=== PATIENT | female | born 1930 | race Caucasian/White ===

== ENCOUNTER → 2016-12-14 | Outpatient (CLI) | payer MEDICARE, OTHER ==
[2016-12-14 14:11] LABS: ALANINE AMINOTRANSFERASE 22 U/L (9-52); ALBUMIN 4.1 g/dL (3.5-5.0); ALKALINE PHOSPHATASE 111 U/L (38-126); ANION GAP 8 (5-19); ASPARTATE AMINO TRANSFERASE 29 U/L (14-36); BILIRUBIN,TOTAL 0.7 mg/dL (0.2-1.3); BLOOD UREA NITROGEN 21 mg/dL (7-20); CALCIUM 9.5 mg/dL (8.4-10.2); CARBON DIOXIDE 27 mmol/L (22-30); CHLORIDE 98 mmol/L (98-107); CREATININE RESULT 0.95 mg/dL (0.52-1.25); GLUCOSE 85 mg/dL (75-110); POTASSIUM 5.4 mmol/L (3.6-5.0); SODIUM 133.4 mmol/L (137-145); TOTAL PROTEIN 6.8 g/dL (6.3-8.2)
== END ==
LOC: OD 12:50
PROVIDERS: ATTEND Internal Medicine
DX: Z79.899 Other long term (current) drug therapy (principal); E03.9 Hypothyroidism, unspecified
CPT/HCPCS: 36415; 80053; 84436; 84443

== ENCOUNTER → 2017-12-04 | Outpatient (CLI) | payer MEDICARE, OTHER ==
[2017-12-04 17:28] LABS: FREE T4 (FREE THYROXINE) 1.63 ng/dL (0.78-2.19)
[2017-12-04 17:42] LABS: THYROID STIMULATING HORMONE 0.91 uIU/mL (0.47-4.68)
== END ==
LOC: OD 15:52
PROVIDERS: ATTEND Internal Medicine
DX: E03.9 Hypothyroidism, unspecified (principal)
CPT/HCPCS: 36415; 84439; 84443

== ENCOUNTER 2018-01-05 16:53 | Emergency (ER) | payer MEDICARE, OTHER ==
[2018-01-05] MEDS ORDERED: LIDOCAINE 2% VISCOUS SOLN 20 ML UDCUP PO ONE (17:52)
[2018-01-05] MEDS ORDERED: MAG HYDROX/AL HYDROX/SIMETH SUSP 30 ML UDCUP PO ONE (17:52)
--- NOTE | 2018-01-05 17:53 | ER Document Report ---
ED Medical Screen (RME) - General Chief Complaint: Chest Pain > 30 Stated Complaint: CHEST PAIN Time Seen by Provider: 01/05/18 17:46 Notes: RME DISCLOSURE I have seen this patient as part of a Rapid Medical Evaluation and, if applicable, placed any initially appropriate orders. The patient will be seen and fully evaluated, including a full history and physical exam, by a provider ( in Main ED or Fast Track) when a room becomes available. 87-year-old female here with complaints of midsternal chest pain that feels like her acid reflux. It started this morning around 10 AM, 7 hours ago, after she ate a brownie and has been going all day long. She used to be on Nexium but her help desk coordinator took her off this medication. Symptoms not worse with exertion or breathing. TRAVEL OUTSIDE OF THE [place] IN LAST 30 DAYS: No - Related Data Allergies/Adverse Reactions: codeine [Codeine] Allergy (Intermediate, Verified 01/05/18 16:56) severe nausea Past Medical History - Social History Chew tobacco use (# tins/day): No Frequency of alcohol use: None Drug Abuse: None - Past Medical History Cardiac Medical History: Reports: Hx Congestive Heart Failure, Hx Coronary Artery Disease, Hx Heart Attack - 06/2000 , Hx Hypercholesterolemia, Hx Hypertension - meds since 1999 Denies: Hx Atrial Fibrillation, Hx Peripheral Vascular Disease, Hx Pulmonary Embolism, Hx Heart Murmur Pulmonary Medical History: Reports: Hx Bronchitis, Hx Pneumonia - viral 12 yrs ago Denies: Hx Asthma, Hx COPD, Hx Respiratory Failure, Hx Sleep Apnea, Hx Tuberculosis Neurological Medical History: Denies: Hx Cerebrovascular Accident, Hx Seizures Endocrine Medical History: Reports: Hx Hypothyroidism. Denies: Hx Graves' Disease, Hx Hyperthyroidism Renal/ Medical History: Denies: Hx End Stage Renal Disease, Hx Kidney Stones, Hx Ovarian Cysts, Hx Peritoneal Dialysis, Hx Pelvic Inflammatory Disease Malignancy Medical History: Denies: Hx Breast Cancer, Hx Cervical Cancer, Hx Leukemia, Hx Lung Cancer, Hx Ovarian Cancer GI Medical History: Reports: Hx Gastroesophageal Reflux Disease, Hx Irritable Bowel, Hx Ulcer - stomach. Denies: Hx Crohn's Disease, Hx Hiatal Hernia, Hx Liver Failure, Hx Pancreatitis Musculoskeltal Medical History: Reports Hx Arthritis - all over, Denies Hx Fibromyalgia, Denies Hx Multiple Sclerosis, Denies Hx Muscular Dystrophy Psychiatric Medical History: Denies: Hx Bipolar Disorder, Hx Dementia, Hx Depression, Hx Post Traumatic Stress Disorder, Hx Schizophrenia Traumatic Medical History: Reports: Hx Fractures - broken rt arm when a child Infectious Medical History: Denies: Hx HIV Past Surgical History: Reports: Hx Coronary Artery Bypass Graft, Hx Hysterectomy. Denies: Hx Colostomy, Hx Pacemaker - Immunizations Hx Diphtheria, Pertussis, Tetanus Vaccination: Yes Physical Exam - Vital signs Vitals: Temp Pulse Resp BP Pulse Ox 98.0 F 80 18 151/65 H 95 01/05/18 17:10 01/05/18 17:10 01/05/18 17:10 01/05/18 17:10 01/05/18 17:10 Course - Vital Signs Vital signs: Temp Pulse Resp BP Pulse Ox 98.0 F 80 18 151/65 H 95 01/05/18 17:10 01/05/18 17:10 01/05/18 17:10 01/05/18 17:10 01/05/18 17:10 Doctor's Discharge - Discharge Referrals: CHEVY RASHID MD [Primary Care Provider] - Follow up as needed
[2018-01-05 18:15] LABS: ABSOLUTE EOSINOPHILS # (AUTO) 0.1 10^3/uL (0.0-0.6); ABSOLUTE LYMPHOCYTES (AUTO) 1.2 10^3/uL (0.5-4.7); ABSOLUTE MONOCYTES (AUTO) 0.4 10^3/uL (0.1-1.4); ABSOLUTE NEUT (AUTO) 2.5 10^3/uL (1.7-8.2); EOSINOPHILS % (AUTO) 1.5 % (0-6); HEMATOCRIT 40.2 % (36.0-47.0); HEMOGLOBIN 13.4 g/dL (12.0-15.5); MEAN CORPUSCULAR HEMOGLOBIN 29.9 pg (27.0-33.4); MEAN CORPUSCULAR HGB CONC 33.2 g/dL (32.0-36.0); MEAN CORPUSCULAR VOLUME 90 fl (80-97); MONOCYTES % (AUTO) 10.1 % (3-13); PLATELET COUNT 188 10^3/uL (150-450); RED BLOOD COUNT 4.47 10^6/uL (3.72-5.28); RED CELL DISTRIBUTION WIDTH 13.1 % (11.5-14.0); SEGMENTED NEUTROPHILS % (AUTO) 59.4 % (42-78); TOTAL CELLS COUNTED % (AUTO) 100 %; WHITE BLOOD COUNT 4.3 10^3/uL (4.0-10.5)
--- NOTE | 2018-01-05 18:23 | RADIOLOGY REPORT (SQ) ---
EXAM DESCRIPTION: CHEST PA/LAT COMPLETED DATE/TIME: 01/05/2018 6:12 pm REASON FOR STUDY: CP SOB COMPARISON: 08/11/2015 EXAM PARAMETERS: NUMBER OF VIEWS: two views TECHNIQUE: Digital Frontal and Lateral radiographic views of the chest acquired. RADIATION DOSE: NA LIMITATIONS: none FINDINGS: LUNGS AND PLEURA: The lungs are hyperexpanded. There are no infiltrates or effusions. Th ere is no mass. MEDIASTINUM AND HILAR STRUCTURES: No masses or contour abnormalities. HEART AND VASCULAR STRUCTURES: Heart normal size. No evidence for failure. BONES: No acute findings. HARDWARE: Sternotomy wires, graft markers. OTHER: No other significant finding. IMPRESSION: Chronic lung changes with no acute cardiopulmonary disease. TECHNICAL DOCUMENTATION: JOB ID: [id number] [employer]- All Rights Reserved Reading location - IP/workstation name: [email or web address]
[2018-01-05 18:36] LABS: ALANINE AMINOTRANSFERASE 61 U/L (9-52); ALBUMIN 4.2 g/dL (3.5-5.0); ALKALINE PHOSPHATASE 158 U/L (38-126); ANION GAP 12 (5-19); ASPARTATE AMINO TRANSFERASE 50 U/L (14-36); BILIRUBIN,DIRECT 0.3 mg/dL (0.0-0.4); BILIRUBIN,TOTAL 0.6 mg/dL (0.2-1.3); BLOOD UREA NITROGEN 18 mg/dL (7-20); CALCIUM 9.8 mg/dL (8.4-10.2); CARBON DIOXIDE 30 mmol/L (22-30); CHLORIDE 92 mmol/L (98-107); GLUCOSE 119 mg/dL (75-110); POTASSIUM 4.3 mmol/L (3.6-5.0); SODIUM 134.2 mmol/L (137-145); TOTAL PROTEIN 6.7 g/dL (6.3-8.2)
--- NOTE | 2018-01-05 21:12 | ER Document Report ---
ED General - General Chief Complaint: Chest Pain > 30 Stated Complaint: CHEST PAIN Time Seen by Provider: 01/05/18 17:46 Information source: Patient TRAVEL OUTSIDE OF THE [place] IN LAST 30 DAYS: No - HPI Patient complains to provider of: acid reflux disease Onset: This morning Onset/Duration: Gradual Notes: Patient is an 87-year-old female that lives at home with her son. She moved here from [place] approximately 30 years ago. She states that she has a history of acid reflux and was on Nexium for years. She has had GERD for at least 13 years she had 3 upper GIs and has a history of esophageal dilatation with esophageal ulcers in the past. She sees Dr. Barahona. Patient states proximally 5 years ago she was taken off Nexium by her test analyst. Patient has a history of CABG in 1999 and states she has not had chest pain since that time. This morning patient had her usual coffee oatmeal with blueberries around 8 AM. Around 10:00 she did have brownies with walnuts. She states that she cut the [employer] some very small as she usually does due to her history of esophageal dilation. Patient states shortly after eating brownies that she had severe acid reflux where she could not eat or drink anything. She presents here for evaluation. - Related Data Allergies/Adverse Reactions: codeine [Codeine] Allergy (Intermediate, Verified 01/05/18 16:56) severe nausea Past Medical History - General Information source: Patient - Social History Smoking Status: Former Smoker Chew tobacco use (# tins/day): No Frequency of alcohol use: None Drug Abuse: None Lives with: Family Family History: CAD Patient has suicidal ideation: No Patient has homicidal ideation: No - Past Medical History Cardiac Medical History: Reports: Hx Congestive Heart Failure, Hx Coronary Artery Disease, Hx Heart Attack - 06/2000 , Hx Hypercholesterolemia, Hx Hypertension - meds since 1999 Denies: Hx Atrial Fibrillation, Hx Peripheral Vascular Disease, Hx Pulmonary Embolism, Hx Heart Murmur Pulmonary Medical History: Reports: Hx Bronchitis, Hx Pneumonia - viral 12 yrs ago Denies: Hx Asthma, Hx COPD, Hx Respiratory Failure, Hx Sleep Apnea, Hx Tuberculosis Neurological Medical History: Denies: Hx Cerebrovascular Accident, Hx Seizures Endocrine Medical History: Reports: Hx Hypothyroidism. Denies: Hx Graves' Disease, Hx Hyperthyroidism Renal/ Medical History: Denies: Hx End Stage Renal Disease, Hx Kidney Stones, Hx Ovarian Cysts, Hx Peritoneal Dialysis, Hx Pelvic Inflammatory Disease Malignancy Medical History: Denies: Hx Breast Cancer, Hx Cervical Cancer, Hx Leukemia, Hx Lung Cancer, Hx Ovarian Cancer GI Medical History: Reports: Hx Gastroesophageal Reflux Disease, Hx Irritable Bowel, Hx Ulcer - stomach. Denies: Hx Crohn's Disease, Hx Hiatal Hernia, Hx Liver Failure, Hx Pancreatitis Musculoskeltal Medical History: Reports Hx Arthritis - all over, Denies Hx Fibromyalgia, Denies Hx Multiple Sclerosis, Denies Hx Muscular Dystrophy Psychiatric Medical History: Denies: Hx Bipolar Disorder, Hx Dementia, Hx Depression, Hx Post Traumatic Stress Disorder, Hx Schizophrenia Traumatic Medical History: Reports: Hx Fractures - broken rt arm when a child Infectious Medical History: Denies: Hx HIV Past Surgical History: Reports: Hx Coronary Artery Bypass Graft, Hx Hysterectomy. Denies: Hx Colostomy, Hx Pacemaker - Immunizations Hx Diphtheria, Pertussis, Tetanus Vaccination: Yes Hx Pneumococcal Vaccination: 10/30/09 Review of Systems - Review of Systems Constitutional: No symptoms reported EENT: No symptoms reported Cardiovascular: No symptoms reported Respiratory: No symptoms reported Gastrointestinal: See HPI Genitourinary: No symptoms reported Skin: No symptoms reported Hematologic/Lymphatic: No symptoms reported Neurological/Psychological: No symptoms reported Physical Exam - Vital signs Vitals: Temp Pulse Resp BP Pulse Ox 98.0 F 80 18 151/65 H 95 01/05/18 17:10 01/05/18 17:10 01/05/18 17:10 01/05/18 17:10 01/05/18 17:10 - Notes Notes: PHYSICAL EXAMINATION: GENERAL: Well-appearing, well-nourished and in no acute distress. She appears younger than her stated age. HEAD: Atraumatic, normocephalic. EYES: Pupils equal round and reactive to light, extraocular movements intact, conjunctiva are normal. ENT: Nares patent, oropharynx clear without exudates. Moist mucous membranes. NECK: Normal range of motion, supple without lymphadenopathy LUNGS: Breath sounds clear to auscultation bilaterally and equal. No wheezes rales or rhonchi. HEART: Regular rate and rhythm with murmur ABDOMEN: Soft, nontender, nondistended abdomen. No guarding, no rebound. No masses appreciated. Female : deferred Musculoskeletal: Normal range of motion, no pitting or edema. No cyanosis. NEUROLOGICAL: Cranial nerves grossly intact. Normal speech, normal gait. Normal sensory, motor exams PSYCH: Normal mood, normal affect. SKIN: Warm, Dry, normal turgor, no rashes or lesions noted. Course - Re-evaluation Re-evalutation: 01/05/18 21:10 Labs- All tests 24 hr 01/05/18 01/05/18 01/05/18 18:00 18:00 18:00 WBC 4.3 RBC 4.47 Hgb 13.4 Hct 40.2 MCV 90 MCH 29.9 MCHC 33.2 RDW 13.1 Plt Count 188 Seg Neutrophils % 59.4 Lymphocytes % 28.0 Monocytes % 10.1 Eosinophils % 1.5 Basophils % 1.0 Absolute Neutrophils 2.5 Absolute Lymphocytes 1.2 Absolute Monocytes 0.4 Absolute Eosinophils 0.1 Absolute Basophils 0.0 Sodium 134.2 L Potassium 4.3 Chloride 92 L Carbon Dioxide 30 Anion Gap 12 BUN 18 Creatinine 1.02 Est GFR ( Amer) > 60 Est GFR (Non-Af Amer) 51 L Glucose 119 H Calcium 9.8 Total Bilirubin 0.6 Direct Bilirubin 0.3 Neonat Total Bilirubin Not Reportable Neonat Direct Bilirubin Not Reportable Neonat Indirect Bili Not Reportable AST 50 H ALT 61 H Alkaline Phosphatase 158 H Troponin I < 0.012 Total Protein 6.7 Albumin 4.2 Chest X-Ray 01/05/18 17:52 IMPRESSION: Chronic lung changes with no acute cardiopulmonary disease. - Vital Signs Vital signs: Temp Pulse Resp BP Pulse Ox 98.0 F 80 18 151/65 H 95 01/05/18 17:10 01/05/18 17:10 01/05/18 17:10 01/05/18 17:10 01/05/18 17:10 - Laboratory Result Diagrams: 01/05/18 18:00 01/05/18 18:00 Laboratory results interpreted by me: 01/05/18 18:00 Sodium 134.2 L Chloride 92 L Est GFR (Non-Af Amer) 51 L Glucose 119 H AST 50 H ALT 61 H Alkaline Phosphatase 158 H - Diagnostic Test Radiology reviewed: Image reviewed, Reports reviewed - EKG Interpretation by Me EKG shows normal: Sinus rhythm - 79 Rhythm: APC's When compared to previous EKG there are: No significant change Discharge - Discharge Clinical Impression: Reflux esophagitis Condition: Stable Disposition: HOME, SELF-CARE Instructions: Antacid Therapy ([facility]), Esophagitis ([facility]) Additional Instructions: Follow up with your physician tomorrow for further care or return to the ED IMMEDIATELY if symptoms worsen or new concerns occur. If you cannot afford to follow up with your primary care physician a list of low cost clinics have been provided at the end of your discharge papers as well. Follow-up with your test analyst Dr. Pal as scheduled next . His try and eat a bland diet for the next week. If you have continued episodes of reflux you need to talk to Dr. Wright your carpet cleaner. Return to the emergency department if you have chest pain, high fevers, intractable vomiting or any other concerns. Referrals: CHEVY RASHID MD [Primary Care Provider] - Follow up as needed
--- NOTE | 2018-01-05 21:13 | EKG REPORT ---
SEVERITY:- ABNORMAL ECG - SINUS RHYTHM MULTIPLE ATRIAL PREMATURE COMPLEXES BORDERLINE RIGHT AXIS DEVIATION NONSPECIFIC REPOL ABNORMALITY, DIFFUSE LEADS BORDERLINE PROLONGED QT INTERVAL : Confirmed by: Bjorn Pal 05-Jan-2018 21:11:55
[2018-01-05 21:17] VITALS: BP 140/63
== END 2018-01-05 21:40 | disposition home or self-care (01) ==
LOC: ER 16:53
DX: K21.0 Gastro-esophageal reflux disease with esophagitis (principal); R07.9 Chest pain, unspecified; Z87.891 Personal history of nicotine dependence; I50.9 Heart failure, unspecified; I25.10 Atherosclerotic heart disease of native coronary artery without angina pectoris; I25.2 Old myocardial infarction; E78.00 Pure hypercholesterolemia, unspecified; I10 Essential (primary) hypertension
CPT/HCPCS: 93005; 99285; 36415; 85025; 80053; 84484; 71046; 93010; J3490

== ENCOUNTER → 2018-11-29 | Outpatient (CLI) | payer MEDICARE, OTHER ==
[2018-11-29 11:16] LABS: ABSOLUTE EOSINOPHILS # (AUTO) 0.1 10^3/uL (0.0-0.6); ABSOLUTE LYMPHOCYTES (AUTO) 1.2 10^3/uL (0.5-4.7); ABSOLUTE MONOCYTES (AUTO) 0.3 10^3/uL (0.1-1.4); ABSOLUTE NEUT (AUTO) 1.7 10^3/uL (1.7-8.2); BASOPHILS % (AUTO) 0.9 % (0-2); EOSINOPHILS % (AUTO) 2.6 % (0-6); HEMATOCRIT 38.1 % (36.0-47.0); HEMOGLOBIN 12.8 g/dL (12.0-15.5); LYMPHOCYTES % (AUTO) 35.5 % (13-45); MEAN CORPUSCULAR HEMOGLOBIN 30.2 pg (27.0-33.4); MEAN CORPUSCULAR HGB CONC 33.7 g/dL (32.0-36.0); MEAN CORPUSCULAR VOLUME 90 fl (80-97); MONOCYTES % (AUTO) 9.9 % (3-13); PLATELET COUNT 178 10^3/uL (150-450); RED BLOOD COUNT 4.25 10^6/uL (3.72-5.28); RED CELL DISTRIBUTION WIDTH 13.9 % (11.5-14.0); SEGMENTED NEUTROPHILS % (AUTO) 51.1 % (42-78); TOTAL CELLS COUNTED % (AUTO) 100 %; WHITE BLOOD COUNT 3.4 10^3/uL (4.0-10.5)
[2018-11-29 11:26] LABS: ALANINE AMINOTRANSFERASE 31 U/L (9-52); ALKALINE PHOSPHATASE 109 U/L (38-126); ANION GAP 6 (5-19); ASPARTATE AMINO TRANSFERASE 37 U/L (14-36); BILIRUBIN,DIRECT 0.3 mg/dL (0.0-0.4); BILIRUBIN,TOTAL 0.8 mg/dL (0.2-1.3); BLOOD UREA NITROGEN 17 mg/dL (7-20); CALCIUM 9.1 mg/dL (8.4-10.2); CARBON DIOXIDE 30 mmol/L (22-30); CHLORIDE 103 mmol/L (98-107); GLUCOSE 98 mg/dL (75-110); POTASSIUM 5.1 mmol/L (3.6-5.0); TOTAL PROTEIN 6.4 g/dL (6.3-8.2); TRIGLYCERIDES 63 mg/dL (<150)
[2018-11-29 11:36] LABS: DIRECT LDL 56 mg/dL (<100)
[2018-11-29 11:42] LABS: FREE T4 (FREE THYROXINE) 1.96 ng/dL (0.78-2.19)
[2018-11-29 12:00] LABS: THYROID STIMULATING HORMONE < 0.01 uIU/mL (0.47-4.68)
== END ==
LOC: OD 09:39
PROVIDERS: ATTEND Internal Medicine
DX: J44.9 Chronic obstructive pulmonary disease, unspecified (principal); I10 Essential (primary) hypertension; I25.10 Atherosclerotic heart disease of native coronary artery without angina pectoris; E03.9 Hypothyroidism, unspecified; E78.5 Hyperlipidemia, unspecified; Z79.899 Other long term (current) drug therapy
CPT/HCPCS: 36415; 80053; 80061; 84439; 84443; 85025

== ENCOUNTER 2019-07-26 07:17 | Emergency (ER) | payer MEDICARE, OTHER ==
[2019-07-26] MEDS ORDERED: ACETAMINOPHEN 325 MG TABLET PO ONE (07:27)
[2019-07-26] MEDS ORDERED: CYCLOBENZAPRINE HCL 10 MG TABLET PO ONE (07:27)
--- NOTE | 2019-07-26 07:27 | ER Document Report ---
ED General - General Stated Complaint: TROUBLE BREATHING Time Seen by Provider: 07/26/19 07:22 Primary Care Provider: CHEVY GONSALVES MD [Primary Care Provider] - Follow up as needed TRAVEL OUTSIDE OF THE [place] IN LAST 30 DAYS: No - HPI Patient complains to provider of: neck pain Notes: 89 y/o presenting to ED for evaluation of left sided neck pain ongoing for 2-3 days w/o known trauma no weakness or numbness in arms or legs no headache no injury she reports significant pain w/ attempted movement of neck and minimal pain if she stays still no fever no skin change she has tried no medication for this pain incidentally, she also notes chronic SOB x2-3 years that is at baseline - Related Data Allergies/Adverse Reactions: codeine [Codeine] Allergy (Intermediate, Verified 01/05/18 16:56) severe nausea Past Medical History - Social History Smoking Status: Unknown if Ever Smoked Family History: CAD - Past Medical History Cardiac Medical History: Reports: Hx Congestive Heart Failure, Hx Coronary Artery Disease, Hx Heart Attack - 06/2000 , Hx Hypercholesterolemia, Hx Hypertension - meds since 1999 Denies: Hx Atrial Fibrillation, Hx Peripheral Vascular Disease, Hx Pulmonary Embolism, Hx Heart Murmur Pulmonary Medical History: Reports: Hx Bronchitis, Hx Pneumonia - viral 12 yrs ago Denies: Hx Asthma, Hx COPD, Hx Respiratory Failure, Hx Sleep Apnea, Hx Tuberculosis Neurological Medical History: Denies: Hx Cerebrovascular Accident, Hx Seizures, Hx Parkinson's Disease Endocrine Medical History: Reports: Hx Hypothyroidism. Denies: Hx Graves' Disease, Hx Hyperthyroidism Renal/ Medical History: Denies: Hx End Stage Renal Disease, Hx Kidney Stones, Hx Ovarian Cysts, Hx Peritoneal Dialysis, Hx Pelvic Inflammatory Disease Malignancy Medical History: Denies: Hx Breast Cancer, Hx Cervical Cancer, Hx Leukemia, Hx Lung Cancer, Hx Ovarian Cancer GI Medical History: Reports: Hx Gastroesophageal Reflux Disease, Hx Irritable Bowel, Hx Ulcer - stomach. Denies: Hx Crohn's Disease, Hx Hiatal Hernia, Hx Liver Failure, Hx Pancreatitis Musculoskeletal Medical History: Reports Hx Arthritis - all over, Denies Hx Fibromyalgia, Denies Hx Multiple Sclerosis, Denies Hx Muscular Dystrophy, Denies Hx Systemic Lupus Erythematosus Psychiatric Medical History: Denies: Hx Bipolar Disorder, Hx Dementia, Hx Depression, Hx Post Traumatic Stress Disorder, Hx Schizophrenia Traumatic Medical History: Reports: Hx Fractures - broken rt arm when a child Infectious Medical History: Denies: Hx HIV Past Surgical History: Reports: Hx Coronary Artery Bypass Graft, Hx Hysterectomy. Denies: Hx Colostomy, Hx Pacemaker - Immunizations Hx Diphtheria, Pertussis, Tetanus Vaccination: Yes Hx Pneumococcal Vaccination: 10/30/09 Review of Systems - Review of Systems Constitutional: No symptoms reported EENT: No symptoms reported Cardiovascular: No symptoms reported Respiratory: Short of breath Gastrointestinal: No symptoms reported Genitourinary: No symptoms reported Female Genitourinary: No symptoms reported Musculoskeletal: Neck pain Skin: No symptoms reported Hematologic/Lymphatic: No symptoms reported Neurological/Psychological: No symptoms reported. denies: Weakness, Gait changes, Headaches, Speech impairment, Numbness Physical Exam - Vital signs Vitals: Pulse Ox 97 07/26/19 07:20 Interpretation: Normal - General General appearance: Appears well, Alert - HEENT Head: Normocephalic, Atraumatic Eyes: Normal Pupils: PERRL Neck: Other - she has limited rom of neck when turning to left but can turn to right ok. does not flex neck significantly because she states it increases her pain. she has focal left sided paraspinal c spine tenderness over trapezius distribution. no rashes Notes: normal and symmetric pupillary response - Respiratory Respiratory status: No respiratory distress Chest status: Nontender Breath sounds: Normal Chest palpation: Normal - Cardiovascular Rhythm: Regular Heart sounds: Normal auscultation Murmur: No - Abdominal Inspection: Normal Distension: No distension Bowel sounds: Normal Tenderness: Nontender Organomegaly: No organomegaly - Back Back: Normal, Nontender - Extremities General upper extremity: Normal inspection, Nontender, Normal color, Normal ROM, Normal temperature General lower extremity: Normal inspection, Nontender, Normal color, Normal ROM, Normal temperature, Normal weight bearing. No: Janneth's sign - Neurological Neuro grossly intact: Yes Cognition: Normal Orientation: AAOx4 [place] Coma Scale Eye Opening: Spontaneous Nam Coma Scale Verbal: Oriented [place] Coma Scale Motor: Obeys Commands [place] Coma Scale Total: 15 Speech: Normal Motor strength normal: LUE, RUE, LLE, RLE Sensory: Normal Notes: no weakness or numbness in extremities w/ symmetric reflexes. - Psychological Associated symptoms: Normal affect, Normal mood - Skin Skin Temperature: Warm Skin Moisture: Dry Skin Color: Normal Course - Re-evaluation Re-evalutation: 07/26/19 07:39 patient presenting for left sided neck pain seems msk in nature on exam will check labs, ekg, cxr, and c spine xr given advanced age and potential for atypical cardiac presentation ekg nonischemic acutely 07/26/19 09:12 patient's c spine xr shows significant arthropathy CXR has mild edema and trace effusion no oxygen requirement or increased work of breathing ekg nonischemic trop neg doubt atypical acs given duration of symptoms and neg trop has had some improvement w/ tylenol and flexeril will rx flexeril and steroid course recommend pcp follow up for ongoing care encouraged ongoing cardiology follow up for cardiac issues - Vital Signs Vital signs: Temp Pulse Resp BP Pulse Ox 98.9 F 71 20 146/77 H 98 07/26/19 07:47 07/26/19 07:47 07/26/19 08:11 07/26/19 08:11 07/26/19 08:11 - Laboratory Result Diagrams: 07/26/19 08:05 07/26/19 08:05 Laboratory results interpreted by me: 07/26/19 07/26/19 08:05 08:05 Hct 35.9 L Lymph % (Auto) 12.5 L Seg Neutrophils % 79.2 H Sodium 132.5 L Total Bilirubin 1.7 H Direct Bilirubin 0.5 H AST 55 H Alkaline Phosphatase 166 H Total Protein 6.1 L Albumin 3.4 L - Diagnostic Test Radiology reviewed: Image reviewed, Reports reviewed - EKG Interpretation by Me Additional EKG results interpreted by me: 07/26/19 07:39 EKG - 0732, rate of 76. NSR. no ST changes. poor R wave progression. similar to previous study with actually more normal appearance of ST segments Discharge - Discharge Clinical Impression: Cervical spine arthritis, Neck pain, Elevated blood pressure reading CHF (congestive heart failure) Qualifiers: Heart failure type: unspecified Heart failure chronicity: unspecified Qualified Code(s): I50.9 - Heart failure, unspecified Condition: Stable Disposition: HOME, SELF-CARE Instructions: Arthritis ([facility]) Additional Instructions: follow up with primary care provider for ongoing symptoms return to the ED with worsening of condition take medicine as directed Prescriptions: Cefdinir 300 mg PO BID #14 capsule Cyclobenzaprine HCl [Flexeril 5 mg Tablet] 5 mg PO TID #15 tablet Methylprednisolone [Medrol Dosepack (4 mg/Tab) 21 Tab/Dosepak] 21 tab PO ASDIR PRN #1 [id number] PRN Reason: Referrals: CHEVY GONSALVES MD [Primary Care Provider] - Follow up as needed
[2019-07-26 08:19] LABS: ABSOLUTE LYMPHOCYTES (AUTO) 0.8 10^3/uL (0.5-4.7); ABSOLUTE MONOCYTES (AUTO) 0.4 10^3/uL (0.1-1.4); ABSOLUTE NEUT (AUTO) 4.8 10^3/uL (1.7-8.2); BASOPHILS % (AUTO) 0.6 % (0-2); EOSINOPHILS % (AUTO) 0.3 % (0-6); HEMATOCRIT 35.9 % (36.0-47.0); HEMOGLOBIN 12.1 g/dL (12.0-15.5); LYMPHOCYTES % (AUTO) 12.5 % (13-45); MEAN CORPUSCULAR HEMOGLOBIN 30.4 pg (27.0-33.4); MEAN CORPUSCULAR HGB CONC 33.6 g/dL (32.0-36.0); MEAN CORPUSCULAR VOLUME 91 fl (80-97); MONOCYTES % (AUTO) 7.4 % (3-13); PLATELET COUNT 184 10^3/uL (150-450); RED BLOOD COUNT 3.97 10^6/uL (3.72-5.28); RED CELL DISTRIBUTION WIDTH 13.7 % (11.5-14.0); SEGMENTED NEUTROPHILS % (AUTO) 79.2 % (42-78); TOTAL CELLS COUNTED % (AUTO) 100 %; WHITE BLOOD COUNT 6.1 10^3/uL (4.0-10.5)
--- NOTE | 2019-07-26 08:29 | RADIOLOGY REPORT (SQ) ---
EXAM DESCRIPTION: CHEST SINGLE VIEW COMPLETED DATE/TIME: 07/26/2019 7:54 am REASON FOR STUDY: SOB COMPARISON: 05/01/2015, 08/11/2015, 01/05/2018 EXAM PARAMETERS: NUMBER OF VIEWS: One view. TECHNIQUE: Single frontal radiographic view of the chest acquired. RADIATION DOSE: NA LIMITATIONS: None. FINDINGS: LUNGS AND PLEURA: Trace right pleural effusion. There is mild bibasilar airspace disease atelectasis versus pneumonia. Remainder of the lungs are grossly clear. No pneumothorax. MEDIASTINUM AND HILAR STRUCTURES: No masses. Contour normal. HEART AND VASCULAR STRUCTURES: Post sternotomy for CABG. BONES: No acute findings. HARDWARE: None in the chest. OTHER: No other significant finding. IMPRESSION: Trace right pleural effusion. Bibasilar airspace disease likely atelectasis TECHNICAL DOCUMENTATION: JOB ID: [id number] [employer]- All Rights Reserved Reading location - IP/workstation name: [email or web address]
--- NOTE | 2019-07-26 08:31 | RADIOLOGY REPORT (SQ) ---
EXAM DESCRIPTION: CERV SP 4 OR 5 VIEWS COMPLETED DATE/TIME: 07/26/2019 7:54 am REASON FOR STUDY: pain COMPARISON: 05/01/2015 NUMBER OF VIEWS: Five views. TECHNIQUE: AP, lateral, obliques and odontoid radiographic images acquired of the cervical spine. LIMITATIONS: None. FINDINGS: MINERALIZATION: Osteopenic ALIGNMENT: Anatomic. VERTEBRAE: Vertebral bodies of normal height. DISCS: High-grade disc space loss of height at C5-6 FORAMINA: Moderate left-sided C4-5 facet hypertrophy. No significant foraminal narrowing. LATERAL AND POSTERIOR ELEMENTS: Facets, lateral masses and spinous processes without significant find ings. HARDWARE: None in the spine. SOFT TISSUES: No masses or calcifications. Lung apices clear. OTHER: No other significant finding. IMPRESSION: Left facet arthropathy at C4-5. Disc space loss of height with vertebral body endplate sclerosis at C5-6. No high-grade bony foraminal or central stenosis TECHNICAL DOCUMENTATION: JOB ID: [id number] [employer] All Rights Reserved Reading location - IP/workstation name: [email or web address]
[2019-07-26 08:39] LABS: ALBUMIN 3.4 g/dL (3.5-5.0); ALKALINE PHOSPHATASE 166 U/L (38-126); ANION GAP 9 (5-19); ASPARTATE AMINO TRANSFERASE 55 U/L (14-36); BILIRUBIN,DIRECT 0.5 mg/dL (0.0-0.4); BILIRUBIN,TOTAL 1.7 mg/dL (0.2-1.3); BLOOD UREA NITROGEN 14 mg/dL (7-20); CALCIUM 8.4 mg/dL (8.4-10.2); CARBON DIOXIDE 26 mmol/L (22-30); CHLORIDE 98 mmol/L (98-107); GLUCOSE 109 mg/dL (75-110); POTASSIUM 4.4 mmol/L (3.6-5.0); TOTAL PROTEIN 6.1 g/dL (6.3-8.2)
[2019-07-26 09:51] VITALS: BP 142/60
--- NOTE | 2019-07-27 09:13 | EKG REPORT ---
SEVERITY:- OTHERWISE NORMAL ECG - SINUS RHYTHM LOW VOLTAGE IN FRONTAL LEADS MINIMAL ST DEPRESSION, ANTEROLATERAL LEADS : Confirmed by: Bjorn Pal 27-Jul-2019 09:12:46
== END 2019-07-26 09:59 | disposition home or self-care (01) ==
LOC: ER 07:17
DX: M46.92 Unspecified inflammatory spondylopathy, cervical region (principal); M54.2 Cervicalgia; R03.0 Elevated blood-pressure reading, without diagnosis of hypertension; I50.9 Heart failure, unspecified; Z88.6 Allergy status to analgesic agent
CPT/HCPCS: 93005; 99284; 36415; 85025; 80053; 84484; 72050; 71045; 93010; A9270 ×2

== ENCOUNTER 2019-08-15 06:48 | Inpatient (IN) | payer MEDICARE, OTHER ==
[2019-08-15 07:21] LABS: ABSOLUTE LYMPHOCYTES (AUTO) 0.8 10^3/uL (0.5-4.7); ABSOLUTE MONOCYTES (AUTO) 0.2 10^3/uL (0.1-1.4); ABSOLUTE NEUT (AUTO) 1.8 10^3/uL (1.7-8.2); BASOPHILS % (AUTO) 1.2 % (0-2); EOSINOPHILS % (AUTO) 1.3 % (0-6); HEMATOCRIT 34.8 % (36.0-47.0); HEMOGLOBIN 11.4 g/dL (12.0-15.5); LYMPHOCYTES % (AUTO) 28.5 % (13-45); MEAN CORPUSCULAR HEMOGLOBIN 29.8 pg (27.0-33.4); MEAN CORPUSCULAR HGB CONC 32.8 g/dL (32.0-36.0); MEAN CORPUSCULAR VOLUME 91 fl (80-97); MONOCYTES % (AUTO) 8.1 % (3-13); PLATELET COUNT 210 10^3/uL (150-450); RED BLOOD COUNT 3.83 10^6/uL (3.72-5.28); RED CELL DISTRIBUTION WIDTH 14.1 % (11.5-14.0); SEGMENTED NEUTROPHILS % (AUTO) 60.9 % (42-78); TOTAL CELLS COUNTED % (AUTO) 100 %; WHITE BLOOD COUNT 2.9 10^3/uL (4.0-10.5)
[2019-08-15 07:23] LABS: INTERNATIONAL RATION (INR) 1.16; PROTHROMBIN TIME 14.9 SEC (11.4-15.4)
[2019-08-15 07:37] LABS: ALKALINE PHOSPHATASE 163 U/L (38-126); ANION GAP 6 (5-19); ASPARTATE AMINO TRANSFERASE 52 U/L (14-36); BILIRUBIN,DIRECT 0.4 mg/dL (0.0-0.4); BLOOD UREA NITROGEN 15 mg/dL (7-20); CALCIUM 8.4 mg/dL (8.4-10.2); CARBON DIOXIDE 27 mmol/L (22-30); CHLORIDE 101 mmol/L (98-107); GLUCOSE 152 mg/dL (75-110); POTASSIUM 4.9 mmol/L (3.6-5.0); TOTAL PROTEIN 5.5 g/dL (6.3-8.2)
[2019-08-15 07:43] LABS: VENOUS BLOOD PCO2 48.2 mmHg (35-63); VENOUS BLOOD PH 7.35 (7.30-7.42)
[2019-08-15 07:46] LABS: NT PRO BNP 15800 pg/mL (<450)
[2019-08-15 07:51] LABS: TROPONIN I < 0.012 ng/mL
--- NOTE | 2019-08-15 08:15 | RADIOLOGY REPORT (SQ) ---
EXAM DESCRIPTION: CHEST SINGLE VIEW COMPLETED DATE/TIME: 08/15/2019 7:43 am REASON FOR STUDY: sob COMPARISON: 07/26/2019 EXAM PARAMETERS: NUMBER OF VIEWS: One view. TECHNIQUE: Single frontal radiographic view of the chest acquired. RADIATION DOSE: NA LIMITATIONS: None. FINDINGS: LUNGS AND PLEURA: Increased heterogeneous opacity of the right lung base. Small right ple ural effusion. Mild diffuse interstitial pulmonary opacity bilaterally. MEDIASTINUM AND HILAR STRUCTURES: No masses. Contour normal. HEART AND VASCULAR STRUCTURES: Cardiomegaly status post median sternotomy. BONES: No acute findings. HARDWARE: None in the chest. OTHER: No other significant finding. IMPRESSION: 1. Increased heterogeneous opacity of the right lung base with a small right pleural ef fusion, findings concerning for infection or aspiration. 2. Underlying mild diffuse interstitial pulmonary opacity, likely edema in the setting of cardiomega ly and similar to prior examination. TECHNICAL DOCUMENTATION: JOB ID: [id number] [employer]- All Rights Reserved Reading location - IP/workstation name: [email or web address]
--- NOTE | 2019-08-15 09:13 | EKG REPORT ---
SEVERITY:- OTHERWISE NORMAL ECG - SINUS RHYTHM LOW VOLTAGE IN FRONTAL LEADS MINIMAL ST DEPRESSION, LATERAL LEADS : Confirmed by: Bjorn Pal 15-Aug-2019 09:12:45
[2019-08-15] MEDS ORDERED: AZITHROMYCIN 250 MG TABLET PO ONE (10:15)
[2019-08-15] MEDS ORDERED: FUROSEMIDE INJ/PF 40 MG/4 ML SDV IV ONE (10:15)
--- NOTE | 2019-08-15 10:31 | ER Document Report ---
ED General - General Chief Complaint: Shortness Of Breath Stated Complaint: DIFFICULTY BREATHING Time Seen by Provider: 08/15/19 07:01 Primary Care Provider: CHEVY GONSALVES MD [Primary Care Provider] - Follow up as needed Mode of Arrival: Medic Information source: Patient TRAVEL OUTSIDE OF THE [place] IN LAST 30 DAYS: No - HPI Notes: Patient presents complaining of shortness of breath. She states it is been going on for 3 to 4 days. She has had a mild dry cough. She has felt that her legs have been swelling. She states she does have a history of congestive heart failure. No history of COPD. She states she has not smoked cigarettes in approximately 60 years. The shortness breath is worse with exertion and better with rest. There is no known radiation of the symptoms. It is been moderate to severe in intensity. It is been constant. No fever sweats or chills. No chest pain. - Related Data Allergies/Adverse Reactions: codeine [Codeine] Allergy (Intermediate, Verified 01/05/18 16:56) severe nausea Past Medical History - General Information source: Patient - Social History Smoking Status: Former Smoker Chew tobacco use (# tins/day): No Frequency of alcohol use: None Drug Abuse: None Family History: CAD Patient has suicidal ideation: No Patient has homicidal ideation: No - Past Medical History Cardiac Medical History: Reports: Hx Congestive Heart Failure, Hx Coronary Artery Disease, Hx Heart Attack - 06/2000 , Hx Hypercholesterolemia, Hx Hypertension - meds since 1999 Denies: Hx Atrial Fibrillation, Hx Peripheral Vascular Disease, Hx Pulmonary Embolism, Hx Heart Murmur Pulmonary Medical History: Reports: Hx Bronchitis, Hx Pneumonia - viral 12 yrs ago Denies: Hx Asthma, Hx COPD, Hx Respiratory Failure, Hx Sleep Apnea, Hx Tuberculosis Neurological Medical History: Denies: Hx Cerebrovascular Accident, Hx Seizures, Hx Parkinson's Disease Endocrine Medical History: Reports: Hx Hypothyroidism. Denies: Hx Graves' Disease, Hx Hyperthyroidism Renal/ Medical History: Denies: Hx End Stage Renal Disease, Hx Kidney Stones, Hx Ovarian Cysts, Hx Peritoneal Dialysis, Hx Pelvic Inflammatory Disease Malignancy Medical History: Denies: Hx Breast Cancer, Hx Cervical Cancer, Hx Leukemia, Hx Lung Cancer, Hx Ovarian Cancer GI Medical History: Reports: Hx Gastroesophageal Reflux Disease, Hx Irritable Bowel, Hx Ulcer - stomach. Denies: Hx Crohn's Disease, Hx Hiatal Hernia, Hx Liver Failure, Hx Pancreatitis Musculoskeletal Medical History: Reports Hx Arthritis - all over, Denies Hx Fibr omyalgia, Denies Hx Multiple Sclerosis, Denies Hx Muscular Dystrophy, Denies Hx Systemic Lupus Erythematosus Psychiatric Medical History: Denies: Hx Bipolar Disorder, Hx Dementia, Hx Depression, Hx Post Traumatic Stress Disorder, Hx Schizophrenia Traumatic Medical History: Reports: Hx Fractures - broken rt arm when a child Infectious Medical History: Denies: Hx HIV Past Surgical History: Reports: Hx Coronary Artery Bypass Graft, Hx Hysterectomy. Denies: Hx Colostomy, Hx Pacemaker - Immunizations Hx Diphtheria, Pertussis, Tetanus Vaccination: Yes Hx Pneumococcal Vaccination: 10/30/09 Review of Systems - Review of Systems Constitutional: Malaise, Weakness. denies: Chills, Fever Cardiovascular: denies: Chest pain, Palpitations Respiratory: Cough, Short of breath Gastrointestinal: denies: Nausea, Vomiting -: Yes All other systems reviewed and negative Physical Exam - Vital signs Vitals: Temp Resp Pulse Ox 97.1 F 19 100 08/15/19 07:01 08/15/19 07:01 08/15/19 07:01 Interpretation: Tachypneic - General General appearance: Appears well, Alert In distress: Mild - HEENT Head: Normocephalic, Atraumatic Eyes: Normal Pupils: PERRL - Respiratory Respiratory status: Respiratory distress - mild Chest status: Nontender Breath sounds: Decreased air movement Chest palpation: Normal - Cardiovascular Rhythm: Regular Heart sounds: Normal auscultation Murmur: No - Abdominal Inspection: Normal Distension: No distension Bowel sounds: Normal Tenderness: Nontender Organomegaly: No organomegaly - Back Back: Normal, Nontender - Extremities General upper extremity: Normal inspection, Nontender, Normal color, Normal ROM, Normal temperature General lower extremity: Nontender, Edema - 1+ bilateral pitting, Normal color, Normal ROM, Normal temperature. No: Janneth's sign - Neurological Neuro grossly intact: Yes Cognition: Normal Orientation: AAOx4 Nam Coma Scale Eye Opening: Spontaneous [place] Coma Scale Verbal: Oriented Nam Coma Scale Motor: Obeys Commands [place] Coma Scale Total: 15 Speech: Normal Motor strength normal: LUE, RUE, LLE, RLE Sensory: Normal - Psychological Associated symptoms: Normal affect, Normal mood - Skin Skin Temperature: Warm Skin Moisture: Dry Skin Color: Normal Course - Re-evaluation Re-evalutation: 08/15/19 10:33 Patient presents with shortness of breath. Patient has a history of CHF and she does have an elevated BNP of 15,000. She also has changes on her x-ray consistent with pulmonary edema. In addition patient has questionable early consolidation in her lungs consistent with pneumonia. Therefore patient has been treated with Lasix as well as antibiotics. - Vital Signs Vital signs: Temp Pulse Resp BP Pulse Ox 97.1 F 21 H 113/71 99 08/15/19 07:01 08/15/19 09:26 08/15/19 09:26 08/15/19 09:26 - Laboratory Result Diagrams: 08/15/19 06:59 08/15/19 06:59 Laboratory results interpreted by me: 08/15/19 08/15/19 08/15/19 06:59 06:59 06:59 WBC 2.9 L Hgb 11.4 L Hct 34.8 L RDW 14.1 H Sodium 133.6 L Glucose 152 H AST 52 H Alkaline Phosphatase 163 H NT-Pro-B Natriuret Pep 55512 H Total Protein 5.5 L Albumin 3.0 L - Diagnostic Test Radiology reviewed: Image reviewed, Reports reviewed - EKG Interpretation by Me EKG shows normal: Sinus rhythm Rate: Normal - 79 Rhythm: NSR [place]/QRS: No: Right axis deviation, Left axis deviation Discharge - Discharge Clinical Impression: CHF (congestive heart failure) Qualifiers: Heart failure type: other Qualified Code(s): I50.9 - Heart failure, unspecified Pneumonia Qualifiers: Pneumonia type: due to unspecified organism Laterality: right Lung location: lower lobe of lung Qualified Code(s): J18.1 - Lobar pneumonia, unspecified organism Condition: Serious Disposition: ADMITTED INPATIENT Admitting Provider: Héctor (Hospitalist) - Day will do admit Unit Admitted: Medical Floor Referrals: CHEVY GONSALVES MD [Primary Care Provider] - Follow up as needed
[2019-08-15] MEDS: CEFTRIAXONE 2 GM/D5W RTU 2 GM/50 ML RTUPB IV SCH (10:40)
[2019-08-15] MEDS ORDERED: ONDANSETRON HCL INJ/PF 4 MG/2 ML SDV IV PRN (12:19)
[2019-08-15] MEDS ORDERED: MAGNESIUM HYDROXIDE SUSP 30 ML UDCUP PO PRN (12:19)
[2019-08-15] MEDS ORDERED: ACETAMINOPHEN 325 MG TABLET PO PRN (12:19)
[2019-08-15] MEDS ORDERED: ONDANSETRON 4 MG TAB.RAPDIS PO PRN (12:19)
[2019-08-15 13:17] LABS: APPEARANCE,URINE CLEAR; BILIRUBIN,URINE NEGATIVE (NEGATIVE); COLOR,URINE YELLOW; GLUCOSE, URINE NEGATIVE (NEGATIVE); KETONES,URINE NEGATIVE (NEGATIVE); PROTEIN,URINE NEGATIVE (NEGATIVE); UROBILINOGEN,URINE NEGATIVE mg/dL (<2.0)
--- NOTE | 2019-08-15 16:17 | PDOC H&P ---
History of Present Illness Admission Date/PCP: 08/15/19 11:16 CHEVY GONSALVES MD History of Present Illness: TRUDY REILLY is a 89 year old female who comes into the emergency room with a 2-week history of worsening shortness of breath. She states is worse with exertion. She also states that for the last 2 days she has had chills and felt warm. Patient has a past history of CABG in 1999 and [place] as well it sounds as though patient is also had congestive heart failure in the past. His family is in the room lives alone but has family support. His O2 sat is 96% on room air. It does not appear to be in distress Past Medical History Cardiac Medical History: Reports: Congestive Heart Failure, Coronary Artery Disease, Myocardial Infarction - 06/2000 , Hyperlipidema, Hypertension - meds since 1999 Denies: Atrial Fibrillation, Peripheral Vascular Disease, Pulmonary Embolism, Heart Murmur Pulmonary Medical History: Reports: Bronchitis, Pneumonia - viral 12 yrs ago Denies: Asthma, Chronic Obstructive Pulmonary Disease (COPD), Respiratory Failure, Sleep Apnea, Tuberculosis Neurological Medical History: Denies: Seizures Endocrine Medical History: Reports: Hypothyroidism Denies: Hyperthyroidism Renal/ Medical History: Denies: End Stage Renal Disease Malignancy Medical History: Denies: Breast Cancer, Cervical Cancer, Leukemia, Lung Cancer, Ovarian Cancer GI Medical History: Reports: Gastroesophageal Reflux Disease Denies: Crohn's Disease, Hiatal Hernia Musculoskeltal Medical History: Reports: Arthritis - all over Denies: Fibromyalgia Psychiatric Medical History: Denies: Bipolar Disorder, Dementia, Depression, Post Traumatic Stress Disorder Hematology: Denies: Anemia, Hemophilia, Sickle Cell Disease Infectious Medical History: Denies: HIV Past Surgical History Past Surgical History: Reports: Coronary Artery Bypass Graft, Hysterectomy Denies: Amputation, Colostomy, Pacemaker Social History Smoking Status: Former Smoker Electronic Cigarette use?: No Frequency of Alcohol Use: None Hx Recreational Drug Use: No Hx Prescription Drug Abuse: No - Advance Directive Resuscitation Status: Do Not Resuscitate Family History Family History: CAD Parental Family History Reviewed: No Children Family History Reviewed: No Sibling(s) Family History Reviewed.: No Medication/Allergy Home Medications: Aspirin [Ecotrin 81 mg EC Tablet] 81 mg PO DAILY 08/15/19 Atorvastatin Calcium [Lipitor 10 mg Tablet] 10 mg PO QHS 08/15/19 Carvedilol [Coreg 25 mg Tablet] 25 mg PO Q12 08/15/19 Levothyroxine Sodium [Synthroid 0.088 mg Tablet] 0.088 mg PO Q6AM 08/15/19 Omeprazole 20 mg PO DAILY 08/15/19 Sacubitril/Valsartan [Entresto 49 mg/51 mg Tablet] 1 tab PO Q12 08/15/19 Allergies/Adverse Reactions: codeine [Codeine] Allergy (Intermediate, Verified 01/05/18 16:56) severe nausea Review of Systems Constitutional: PRESENT: chills, weakness. ABSENT: fever(s), headache(s), weight gain, weight loss Cardiovascular: ABSENT: chest pain, dyspnea on exertion, edema, orthropnea, palpitations Respiratory: PRESENT: dyspnea Neurological: PRESENT: other - Patient is awake and alert oriented x3. ABSENT: abnormal gait, abnormal speech, confusion, dizziness, focal weakness, syncope Psychiatric: ABSENT: anxiety, depression, homidical ideation, suicidal ideation Physical Exam Vital Signs: Temp Pulse Resp BP Pulse Ox 97.1 F 30 H 145/99 H 99 08/15/19 07:01 08/15/19 14:01 08/15/19 14:01 08/15/19 14:01 Intake & Output 08/14/19 08/15/19 08/16/19 06:59 06:59 06:59 Intake Total 50 Balance 50 Weight 43.545 kg General appearance: PRESENT: mild distress, other - Patient has slight shortness of breath with talking Respiratory exam: PRESENT: crackles - Both basis Cardiovascular exam: PRESENT: RRR. ABSENT: diastolic murmur, rubs, systolic mu rmur Extremities exam: PRESENT: other - Peripheral edema in fact if anything patient appears a little dry Neurological exam: PRESENT: alert, awake, oriented to person, oriented to place, oriented to time, oriented to situation, CN II-XII grossly intact, other - Patient has no evidence of dementia. ABSENT: motor sensory deficit Psychiatric exam: PRESENT: appropriate affect, normal mood. ABSENT: homicidal ideation, suicidal ideation Results Laboratory Results: 08/15/19 06:59 08/15/19 06:59 08/15/19 08/15/19 08/15/19 06:59 06:59 07:36 WBC 2.9 L RBC 3.83 Hgb 11.4 L Hct 34.8 L MCV 91 MCH 29.8 MCHC 32.8 RDW 14.1 H Plt Count 210 Seg Neutrophils % 60.9 VBG pH VBG pCO2 VBG HCO3 VBG Base Excess Sodium 133.6 L Potassium 4.9 Chloride 101 Carbon Dioxide 27 Anion Gap 6 BUN 15 Creatinine 0.85 Est GFR ( Amer) > 60 Glucose 152 H Lactic Acid 0.8 Calcium 8.4 Total Bilirubin 1.0 AST 52 H Alkaline Phosphatase 163 H Total Protein 5.5 L Albumin 3.0 L Urine Color Urine Appearance Urine pH Ur Specific R[place] Urine Protein Urine Glucose (UA) Urine Ketones Urine Blood Urine RBC (Auto) 08/15/19 08/15/19 07:36 12:26 WBC RBC Hgb Hct MCV MCH MCHC RDW Plt Count Seg Neutrophils % VBG pH 7.35 VBG pCO2 48.2 VBG HCO3 26.0 VBG Base Excess 0 Sodium Potassium Chloride Carbon Dioxide Anion Gap BUN Creatinine Est GFR ( Amer) Glucose Lactic Acid Calcium Total Bilirubin AST Alkaline Phosphatase Total Protein Albumin Urine Color YELLOW Urine Appearance CLEAR Urine pH 6.0 Ur Specific [place] 1.010 Urine Protein NEGATIVE Urine Glucose (UA) NEGATIVE Urine Ketones NEGATIVE Urine Blood NEGATIVE Urine RBC (Auto) 4 08/15/19 06:59 Troponin I < 0.012 NT-Pro-B Natriuret Pep 58592 H Impressions: Chest X-Ray 08/15/19 07:09 IMPRESSION: 1. Increased heterogeneous opacity of the right lung base with a small right pleural effusion, findings concerning for infection or aspiration. 2. Underlying mild diffuse interstitial pulmonary opacity, likely edema in the setting of cardiomegaly and similar to prior examination. Assessment and Plan - Diagnosis (1) Congestive heart failure (CHF) Qualifiers: Heart failure type: other Qualified Code(s): I50.9 - Heart failure, unspecified Is this a current diagnosis for this admission?: Yes (2) Pneumonia Qualifiers: Pneumonia type: due to unspecified organism Laterality: right Lung lo cation: lower lobe of lung Qualified Code(s): J18.1 - Lobar pneumonia, unspecified organism Is this a current diagnosis for this admission?: Yes (3) Coronary artery disease Is this a current diagnosis for this admission?: Yes (4) Hx of CABG Is this a current diagnosis for this admission?: Yes (5) Hypothyroidism Is this a current diagnosis for this admission?: Yes - Plan Summary Summary: 08/15/2019 Chest x-ray shows opacity in the right lung base and a small pleural effusion, as well as probable pulmonary edema BNP is elevated 18,800, electrolytes grossly normal lactic acid normal 0.8 Gently diurese the patient with IV Lasix, start on IV antibiotics. Anticipate a 2 to 3-day admission. 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 - Time Time Spent with patient: 35 or more minutes
[2019-08-15] MEDS: CARVEDILOL 12.5 MG TABLET PO SCH (21:55)
[2019-08-15] MEDS: ATORVASTATIN CALCIUM 10 MG TABLET PO SCH (21:57)
[2019-08-15] MEDS: FAMOTIDINE 20 MG TABLET PO SCH (21:57)
[2019-08-15] MEDS: SACUBITRIL/VALSARTAN 49 MG/51 MG TABLET PO SCH (21:57)
[2019-08-15] MEDS: FUROSEMIDE INJ/PF 20 MG/2 ML SDV IV SCH (21:57)
[2019-08-16 04:29] LABS: ABSOLUTE LYMPHOCYTES (AUTO) 0.9 10^3/uL (0.5-4.7); ABSOLUTE MONOCYTES (AUTO) 0.3 10^3/uL (0.1-1.4); ABSOLUTE NEUT (AUTO) 2.1 10^3/uL (1.7-8.2); BASOPHILS % (AUTO) 0.6 % (0-2); EOSINOPHILS % (AUTO) 0.8 % (0-6); HEMATOCRIT 34.2 % (36.0-47.0); HEMOGLOBIN 11.4 g/dL (12.0-15.5); LYMPHOCYTES % (AUTO) 27.3 % (13-45); MEAN CORPUSCULAR HEMOGLOBIN 30.1 pg (27.0-33.4); MEAN CORPUSCULAR HGB CONC 33.4 g/dL (32.0-36.0); MEAN CORPUSCULAR VOLUME 90 fl (80-97); MONOCYTES % (AUTO) 9.5 % (3-13); PLATELET COUNT 207 10^3/uL (150-450); RED CELL DISTRIBUTION WIDTH 14.3 % (11.5-14.0); SEGMENTED NEUTROPHILS % (AUTO) 61.8 % (42-78); TOTAL CELLS COUNTED % (AUTO) 100 %; WHITE BLOOD COUNT 3.4 10^3/uL (4.0-10.5)
[2019-08-16 04:59] LABS: ANION GAP 6 (5-19); BLOOD UREA NITROGEN 19 mg/dL (7-20); CALCIUM 8.1 mg/dL (8.4-10.2); CARBON DIOXIDE 32 mmol/L (22-30); CHLORIDE 97 mmol/L (98-107); GLUCOSE 81 mg/dL (75-110)
[2019-08-16 05:18] LABS: POTASSIUM 3.7 mmol/L (3.6-5.0)
[2019-08-16] MEDS: LEVOTHYROXINE SODIUM 0.088 MG TABLET PO SCH (05:31)
[2019-08-16] MEDS: CARVEDILOL 12.5 MG TABLET PO SCH ×2 (09:04→22:08)
[2019-08-16] MEDS: FUROSEMIDE INJ/PF 20 MG/2 ML SDV IV SCH ×2 (09:04→22:09)
[2019-08-16] MEDS: ASPIRIN 81 MG TABLET, ENT COATED PO SCH (09:04)
[2019-08-16] MEDS: CEFTRIAXONE 2 GM/D5W RTU 2 GM/50 ML RTUPB IV SCH (09:05)
[2019-08-16] MEDS: DOCUSATE SODIUM 100 MG CAPSULE PO SCH (09:05)
[2019-08-16] MEDS: ENOXAPARIN SODIUM INJ 30 MG/0.3 ML DISP.SYRIN SUBCUT SCH (09:06)
[2019-08-16] MEDS: SACUBITRIL/VALSARTAN 49 MG/51 MG TABLET PO SCH ×2 (09:10→22:08)
--- NOTE | 2019-08-16 16:19 | PDOC PROGRESS REPORT ---
Subjective Progress Note for:: 08/16/19 Subjective:: 89-year-old female who was admitted yesterday through the emergency room for congestive heart failure and probable pneumonia She looks significantly improved today and she feels much better, less shortness of breath. Reason For Visit: CONGESTIVE HEART FAILURE,PNEUMONIA,CORONARY Physical Exam Vital Signs: Temp Pulse Resp BP Pulse Ox 97.6 F 66 17 103/37 L 99 08/16/19 08:00 08/16/19 12:30 08/16/19 12:30 08/16/19 12:30 08/16/19 08:39 Intake & Output 08/15/19 08/16/19 08/17/19 06:59 06:59 06:59 Intake Total 50 480 Balance 50 480 Weight 44.9 kg 44.9 kg General appearance: PRESENT: no acute distress Respiratory exam: PRESENT: clear to auscultation rommel, crackles - Mild to both ba ses. ABSENT: rales, rhonchi, wheezes Cardiovascular exam: PRESENT: RRR. ABSENT: diastolic murmur, rubs, systolic murmur Neurological exam: PRESENT: alert, awake, oriented to person, oriented to place, oriented to time, oriented to situation, CN II-XII grossly intact. ABSENT: motor sensory deficit Psychiatric exam: PRESENT: appropriate affect, normal mood. ABSENT: homicidal ideation, suicidal ideation Results Laboratory Results: 08/16/19 03:22 08/16/19 03:22 08/16/19 08/16/19 03:22 03:22 WBC 3.4 L RBC 3.80 Hgb 11.4 L Hct 34.2 L MCV 90 MCH 30.1 MCHC 33.4 RDW 14.3 H Plt Count 207 Seg Neutrophils % 61.8 Sodium 135.4 L Potassium 3.7 D Chloride 97 L Carbon Dioxide 32 H Anion Gap 6 BUN 19 Creatinine 1.03 Est GFR ( Amer) > 60 Glucose 81 Calcium 8.1 L Magnesium 1.5 L 08/15/19 08/16/19 06:59 03:22 Troponin I < 0.012 NT-Pro-B Natriuret Pep 58573 H 09944 H Impressions: Chest X-Ray 08/15/19 07:09 IMPRESSION: 1. Increased heterogeneous opacity of the right lung base with a small right pleural effusion, findings concerning for infection or aspiration. 2. Underlying mild diffuse interstitial pulmonary opacity, likely edema in the setting of cardiomegaly and similar to prior examination. Assessment and Plan - Diagnosis (1) Congestive heart failure (CHF) Qualifiers: Heart failure type: other Qualified Code(s): I50.9 - Heart failure, unspecified Is this a current diagnosis for this admission?: Yes (2) Pneumonia Qualifiers: Pneumonia type: due to unspecified organism Laterality: right Lung location: lower lobe of lung Qualified Code(s): J18.1 - Lobar pneumonia, unspecified organism Is this a current diagnosis for this admission?: Yes (3) Coronary artery disease Is this a current diagnosis for this admission?: Yes (4) Hx of CABG Is this a current diagnosis for this admission?: Yes (5) Hypothyroidism Is this a current diagnosis for this admission?: Yes - Plan Summary Summary: 08/15/2019 Chest x-ray shows opacity in the right lung base and a small pleural effusion, as well as probable pulmonary edema BNP is elevated 18,800, electrolytes grossly normal lactic acid normal 0.8 Gently diurese the patient with IV Lasix, start on IV antibiotics. Anticipate a 2 to 3-day admission. 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 08/16/2019 BNP has doubled today to took 31,700, however patient's lungs sound signific antly clear and clinically patient feels much better. She is using no supplemental oxygen and on room air her sat is 99%. Blood pressure 103/37 His magnesium slightly low at 1.5 will give mag oxide 400 twice daily 10 you IV Lasix 20 mg every 12 hours, as well as IV Rocephin - Time Time Spent with patient: 15-24 minutes
[2019-08-16] MEDS: MAGNESIUM OXIDE 400 MG TABLET PO SCH (17:25)
[2019-08-16] MEDS: ATORVASTATIN CALCIUM 10 MG TABLET PO SCH (22:08)
[2019-08-16] MEDS: FAMOTIDINE 20 MG TABLET PO SCH (22:08)
[2019-08-17] MEDS: LEVOTHYROXINE SODIUM 0.088 MG TABLET PO SCH (05:33)
[2019-08-17 08:42] LABS: ANION GAP 5 (5-19); BLOOD UREA NITROGEN 16 mg/dL (7-20); CALCIUM 8.4 mg/dL (8.4-10.2); CARBON DIOXIDE 36 mmol/L (22-30); CHLORIDE 94 mmol/L (98-107); GLUCOSE 97 mg/dL (75-110); POTASSIUM 3.8 mmol/L (3.6-5.0)
[2019-08-17 09:19] LABS: ABSOLUTE LYMPHOCYTES (AUTO) 0.7 10^3/uL (0.5-4.7); ABSOLUTE MONOCYTES (AUTO) 0.3 10^3/uL (0.1-1.4); ABSOLUTE NEUT (AUTO) 2.1 10^3/uL (1.7-8.2); BASOPHILS % (AUTO) 0.8 % (0-2); EOSINOPHILS % (AUTO) 1.5 % (0-6); HEMATOCRIT 38.9 % (36.0-47.0); HEMOGLOBIN 12.9 g/dL (12.0-15.5); LYMPHOCYTES % (AUTO) 21.7 % (13-45); MEAN CORPUSCULAR HEMOGLOBIN 29.8 pg (27.0-33.4); MEAN CORPUSCULAR HGB CONC 33.2 g/dL (32.0-36.0); MEAN CORPUSCULAR VOLUME 90 fl (80-97); MONOCYTES % (AUTO) 9.7 % (3-13); PLATELET COUNT 200 10^3/uL (150-450); RED BLOOD COUNT 4.33 10^6/uL (3.72-5.28); RED CELL DISTRIBUTION WIDTH 14.2 % (11.5-14.0); SEGMENTED NEUTROPHILS % (AUTO) 66.3 % (42-78); TOTAL CELLS COUNTED % (AUTO) 100 %; WHITE BLOOD COUNT 3.2 10^3/uL (4.0-10.5)
[2019-08-17] MEDS: MAGNESIUM OXIDE 400 MG TABLET PO SCH ×2 (09:57→18:32)
[2019-08-17] MEDS: FUROSEMIDE INJ/PF 20 MG/2 ML SDV IV SCH (09:57)
[2019-08-17] MEDS: ENOXAPARIN SODIUM INJ 30 MG/0.3 ML DISP.SYRIN SUBCUT SCH (09:57)
[2019-08-17] MEDS: CARVEDILOL 12.5 MG TABLET PO SCH ×2 (09:57→21:46)
[2019-08-17] MEDS: CEFTRIAXONE 2 GM/D5W RTU 2 GM/50 ML RTUPB IV SCH (10:01)
[2019-08-17] MEDS: ASPIRIN 81 MG TABLET, ENT COATED PO SCH (10:03)
[2019-08-17] MEDS: SACUBITRIL/VALSARTAN 49 MG/51 MG TABLET PO SCH ×2 (10:03→21:46)
[2019-08-17] MEDS: DOCUSATE SODIUM 100 MG CAPSULE PO SCH (10:05)
--- NOTE | 2019-08-17 11:52 | PDOC PROGRESS REPORT ---
Subjective Progress Note for:: 08/17/19 Subjective:: 89-year-old female who was admitted yesterday through the emergency room for congestive heart failure and probable pneumonia She looks significantly improved today and she feels much better, less shortness of breath. 08/17/2019 Continues to improve, is sitting up in bed with no oxygen, ate a good breakfast, no respiratory distress Reason For Visit: CONGESTIVE HEART FAILURE,PNEUMONIA,CORONARY Physical Exam Vital Signs: Temp Pulse Resp BP Pulse Ox 97.7 F 67 16 122/59 L 100 08/17/19 07:44 08/17/19 07:44 08/17/19 07:44 08/17/19 07:44 08/16/19 23:20 Intake & Output 08/16/19 08/17/19 08/18/19 06:59 06:59 06:59 Intake Total 50 770 Balance 50 770 Weight 44.9 kg 43.8 kg General appearance: PRESENT: no acute distress Respiratory exam: PRESENT: crackles, other - Very faint in both bases Cardiovascular exam: PRESENT: RRR. ABSENT: diastolic murmur, rubs, systolic murmur Extremities exam: PRESENT: full ROM. ABSENT: calf tenderness, clubbing, pedal edema Neurological exam: PRESENT: alert, awake, oriented to person, oriented to place, oriented to time, oriented to situation, CN II-XII grossly intact. ABSENT: motor sensory deficit Psychiatric exam: PRESENT: appropriate affect, normal mood. ABSENT: homicidal ideation, suicidal ideation Results Laboratory Results: 08/17/19 09:12 08/17/19 08:01 08/17/19 08/17/19 08/17/19 08:01 08:01 09:12 WBC Cancelled 3.2 L RBC Cancelled 4.33 Hgb Cancelled 12.9 Hct Cancelled 38.9 MCV Cancelled 90 MCH Cancelled 29.8 MCHC Cancelled 33.2 RDW Cancelled 14.2 H Plt Count Cancelled 200 Seg Neutrophils % Cancelled 66.3 Sodium 135.3 L Potassium 3.8 Chloride 94 L Carbon Dioxide 36 H Anion Gap 5 BUN 16 Creatinine 0.83 Est GFR ( Amer) > 60 Glucose 97 Calcium 8.4 08/15/19 08/16/19 08/17/19 06:59 03:22 08:01 Troponin I < 0.012 NT-Pro-B Natriuret Pep 86625 H 67583 H 9970 H Impressions: Chest X-Ray 08/15/19 07:09 IMPRESSION: 1. Increased heterogeneous opacity of the right lung base with a small right pleural effusion, findings concerning for infection or aspiration. 2. Underlying mild diffuse interstitial pulmonary opacity, likely edema in the setting of cardiomegaly and similar to prior examination. Assessment and Plan - Diagnosis (1) Congestive heart failure (CHF) Qualifiers: Heart failure type: other Qualified Code(s): I50.9 - Heart failure, unspecified Is this a current diagnosis for this admission?: Yes (2) Pneumonia Qualifiers: Pneumonia type: due to unspecified organism Laterality: right Lung location: lower lobe of lung Qualified Code(s): J18.1 - Lobar pneumonia, unspecified organism Is this a current diagnosis for this admission?: Yes (3) Coronary artery disease Is this a current diagnosis for this admission?: Yes (4) Hx of CABG Is this a current diagnosis for this admission?: Yes (5) Hypothyroidism Is this a current diagnosis for this admission?: Yes - Plan Summary Summary: 08/15/2019 Chest x-ray shows opacity in the right lung base and a small pleural effusion, as well as probable pulmonary edema BNP is elevated 18,800, electrolytes grossly normal lactic acid normal 0.8 Gently diurese the patient with IV Lasix, start on IV antibiotics. Anticipate a 2 to 3-day admission. 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 08/16/2019 BNP has doubled today to took 31,700, however patient's lungs sound significantly clear and clinically patient feels much better. She is using no supplemental oxygen and on room air her sat is 99%. Blood pressure 103/37 His magnesium slightly low at 1.5 will give mag oxide 400 twice daily 10 you IV Lasix 20 mg every 12 hours, as well as IV Rocephin 08/17/2019 Patient's labs have improved as well BNP is down to 9970. White count is still normal Will DC her IV Lasix and change her to 10 mg p.o. daily on discharge Dissipate discharge tomorrow. Will send out on p.o. antibiotics as well She seems happy with that plan - Time Time Spent with patient: 25-34 minutes
[2019-08-17] MEDS: FAMOTIDINE 20 MG TABLET PO SCH (21:46)
[2019-08-17] MEDS: ATORVASTATIN CALCIUM 10 MG TABLET PO SCH (21:46)
[2019-08-18] MEDS: LEVOTHYROXINE SODIUM 0.088 MG TABLET PO SCH (05:24)
[2019-08-18] MEDS: CEFTRIAXONE 2 GM/D5W RTU 2 GM/50 ML RTUPB IV SCH (11:08)
[2019-08-18] MEDS: ASPIRIN 81 MG TABLET, ENT COATED PO SCH (11:11)
[2019-08-18] MEDS: DOCUSATE SODIUM 100 MG CAPSULE PO SCH (11:12)
[2019-08-18] MEDS: CARVEDILOL 12.5 MG TABLET PO SCH (11:13)
[2019-08-18] MEDS: SACUBITRIL/VALSARTAN 49 MG/51 MG TABLET PO SCH (11:13)
[2019-08-18] MEDS: ENOXAPARIN SODIUM INJ 30 MG/0.3 ML DISP.SYRIN SUBCUT SCH (11:14)
[2019-08-18] MEDS: MAGNESIUM OXIDE 400 MG TABLET PO SCH (11:14)
[2019-08-18 13:42] VITALS: BP 128/49
== END 2019-08-18 15:10 | disposition home or self-care (01) | DRG 291 ==
LOC: ER 06:48 → EH 11:16 → 4N 19:21
PROVIDERS: ADMIT Internal Medicine; ATTEND Internal Medicine
DX: I11.0 Hypertensive heart disease with heart failure (principal); J18.1 Lobar pneumonia, unspecified organism; I50.9 Heart failure, unspecified; I25.10 Atherosclerotic heart disease of native coronary artery without angina pectoris; E78.00 Pure hypercholesterolemia, unspecified; E03.9 Hypothyroidism, unspecified; K21.9 Gastro-esophageal reflux disease without esophagitis; I25.2 Old myocardial infarction; Z66 Do not resuscitate; Z60.2 Problems related to living alone; Z95.1 Presence of aortocoronary bypass graft
CPT/HCPCS: 36415; 71045; 80048; 80053; 81001; 82803; 83605; 83735; 83880; 84443; 84484; 85025; 85610; 87040; 93005; 93010; 99285; J0696; J1650; J1940

== ENCOUNTER 2019-11-04 16:28 | Emergency (ER) | payer MEDICARE, OTHER ==
--- NOTE | 2019-11-04 17:40 | ER Document Report ---
ED Medical Screen (RME) - General Chief Complaint: Breathing Difficulty Stated Complaint: COUGH,CONGESTION,DIFFICULTY BREATHING Time Seen by Provider: 11/04/19 17:30 Primary Care Provider: CHEVY GONSALVES MD [Primary Care Provider] - Follow up as needed Notes: Patient is a 89-year-old female with a history of acid reflux, VT, triple bypass who presents to the emergency department with a chief complaint of shortness of breath. Patient reports she is always had problems with her breathing but that this is worse over the past month. She reports she did just finished azithromycin that was prescribed by her primary care physician. Patient reports this did not make her feel better. Patient reports a productive cough with clear sputum. Patient denies fever. Patient reports she has been told in the past that she has something in her heart; possibly a leaky valve and was told that sometimes fluid may back up into her lungs. TRAVEL OUTSIDE OF THE [place] IN LAST 30 DAYS: No - Related Data Allergies/Adverse Reactions: codeine [Codeine] Allergy (Intermediate, Verified 01/05/18 16:56) severe nausea Past Medical History - Past Medical History Cardiac Medical History: Reports: Hx Congestive Heart Failure, Hx Coronary Artery Disease, Hx Heart Attack - 06/2000 , Hx Hypercholesterolemia, Hx Hypertension - meds since 1999 Denies: Hx Atrial Fibrillation, Hx Peripheral Vascular Disease, Hx Pulmonary Embolism, Hx Heart Murmur Pulmonary Medical History: Reports: Hx Bronchitis, Hx Pneumonia - viral 12 yrs ago Denies: Hx Asthma, Hx COPD, Hx Respiratory Failure, Hx Sleep Apnea, Hx Tuberculosis Neurological Medical History: Denies: Hx Cerebrovascular Accident, Hx Seizures, Hx Parkinson's Disease Endocrine Medical History: Reports: Hx Hypothyroidism. Denies: Hx Graves' Disease, Hx Hyperthyroidism Renal/ Medical History: Denies: Hx End Stage Renal Disease, Hx Kidney Stones, Hx Ovarian Cysts, Hx Peritoneal Dialysis, Hx Pelvic Inflammatory Disease Malignancy Medical History: Denies: Hx Breast Cancer, Hx Cervical Cancer, Hx Leukemia, Hx Lung Cancer, Hx Ovarian Cancer GI Medical History: Reports: Hx Gastroesophageal Reflux Disease, Hx Irritable Bowel, Hx Ulcer - stomach. Denies: Hx Crohn's Disease, Hx Hiatal Hernia, Hx Liver Failure, Hx Pancreatitis Musculoskeltal Medical History: Reports Hx Arthritis - all over, Denies Hx Fibromyalgia, Denies Hx Multiple Sclerosis, Denies Hx Muscular Dystrophy, Denies Hx Systemic Lupus Erythematosus Psychiatric Medical History: Denies: Hx Bipolar Disorder, Hx Dementia, Hx Depression, Hx Post Traumatic Stress Disorder, Hx Schizophrenia Traumatic Medical History: Reports: Hx Fractures - broken rt arm when a child Infectious Medical History: Denies: Hx HIV Past Surgical History: Reports: Hx Coronary Artery Bypass Graft, Hx Hysterectomy. Denies: Hx Colostomy, Hx Pacemaker - Immunizations Hx Diphtheria, Pertussis, Tetanus Vaccination: Yes Physical Exam - Vital signs Vitals: Temp Pulse Resp BP Pulse Ox 98.6 F 67 18 124/72 100 11/04/19 16:44 11/04/19 16:44 11/04/19 16:44 11/04/19 16:44 11/04/19 16:44 - Cardiovascular Rhythm: Regular Heart sounds: Normal auscultation, S1 appreciated, S2 appreciated Course - Re-evaluation Re-evalutation: 11/04/19 17:39 I have greeted and performed a rapid initial assessment of this patient. A comprehensive ED assessment and evaluation of the patient, analysis of test results and completion of the medical decision making process will be conducted by additional ED providers. - Vital Signs Vital signs: Temp Pulse Resp BP Pulse Ox 98.6 F 67 18 124/72 100 11/04/19 16:44 11/04/19 16:44 11/04/19 16:44 11/04/19 16:44 11/04/19 16:44 Doctor's Discharge - Discharge Referrals: CHEVY GONSALVES MD [Primary Care Provider] - Follow up as needed
--- NOTE | 2019-11-04 18:09 | RADIOLOGY REPORT (SQ) ---
EXAM DESCRIPTION: CHEST 2 VIEWS COMPLETED DATE/TIME: 11/04/2019 5:47 pm REASON FOR STUDY: shortness of breath COMPARISON: 08/15/2019. NUMBER OF VIEWS: Two view. TECHNIQUE: Frontal and lateral radiographic views of the chest acquired. LIMITATIONS: None. FINDINGS: LUNGS AND PLEURA: Chronic interstitial changes. No opacities, masses or pneumothorax. Ri ght pleural effusion. Attenuated blood vessels and flattened ally-diaphragms. MEDIASTINUM AND HILAR STRUCTURES: No masses. No contour abnormalities. HEART AND VASCULAR STRUCTURES: Heart normal in size and contour. No evidence for failure. BONES: No acute findings. HARDWARE: Sternotomy wires and coronary bypass markers. OTHER: No other significant finding. IMPRESSION: COPD. CHRONIC SCARRING. RIGHT PLEURAL EFFUSION SLIGHTLY LARGER COMPARED TO THE PRIOR S TUDY. TECHNICAL DOCUMENTATION: JOB ID: [id number] [employer]- All Rights Reserved Reading location - IP/workstation name: [email or web address]
[2019-11-04 19:36] LABS: ABSOLUTE LYMPHOCYTES (AUTO) 0.9 10^3/uL (0.5-4.7); ABSOLUTE MONOCYTES (AUTO) 0.2 10^3/uL (0.1-1.4); ABSOLUTE NEUT (AUTO) 1.9 10^3/uL (1.7-8.2); BASOPHILS % (AUTO) 0.7 % (0-2); EOSINOPHILS % (AUTO) 1.3 % (0-6); HEMATOCRIT 36.3 % (36.0-47.0); LYMPHOCYTES % (AUTO) 29.3 % (13-45); MEAN CORPUSCULAR HEMOGLOBIN 30.3 pg (27.0-33.4); MEAN CORPUSCULAR HGB CONC 32.9 g/dL (32.0-36.0); MEAN CORPUSCULAR VOLUME 92 fl (80-97); MONOCYTES % (AUTO) 7.7 % (3-13); PLATELET COUNT 159 10^3/uL (150-450); RED BLOOD COUNT 3.95 10^6/uL (3.72-5.28); RED CELL DISTRIBUTION WIDTH 15.2 % (11.5-14.0); TOTAL CELLS COUNTED % (AUTO) 100 %; WHITE BLOOD COUNT 3.2 10^3/uL (4.0-10.5)
[2019-11-04 19:56] LABS: A TYPE INFLUENZA AG NEGATIVE (NEGATIVE); B INFLUENZA AG NEGATIVE (NEGATIVE)
[2019-11-04 20:13] LABS: ALBUMIN 3.7 g/dL (3.5-5.0); ALKALINE PHOSPHATASE 178 U/L (38-126); ANION GAP 10 (5-19); ASPARTATE AMINO TRANSFERASE 103 U/L (14-36); BILIRUBIN,DIRECT 0.5 mg/dL (0.0-0.4); BLOOD UREA NITROGEN 20 mg/dL (7-20); CALCIUM 8.9 mg/dL (8.4-10.2); CARBON DIOXIDE 26 mmol/L (22-30); CHLORIDE 99 mmol/L (98-107); GLUCOSE 94 mg/dL (75-110); POTASSIUM 4.8 mmol/L (3.6-5.0); TOTAL PROTEIN 6.5 g/dL (6.3-8.2)
[2019-11-04 20:27] LABS: TROPONIN I 0.015 ng/mL
[2019-11-04] MEDS ORDERED: FUROSEMIDE INJ/PF 20 MG/2 ML SDV IV ONE (20:50)
--- NOTE | 2019-11-04 20:56 | ER Document Report ---
ED General - General Chief Complaint: Shortness Of Breath Stated Complaint: COUGH,CONGESTION,DIFFICULTY BREATHING Time Seen by Provider: 11/04/19 17:30 Primary Care Provider: CHEVY GONSALVES MD [Primary Care Provider] - Follow up as needed TRAVEL OUTSIDE OF THE [place] IN LAST 30 DAYS: No - HPI Notes: Patient is an 89-year-old female who presents to the emergency department for evaluation of dyspnea. Is been going on intermittently for about a week. She is had an intermittently productive cough, clear sputum only. No fevers or chills. She denies any pain. No nausea or vomiting. She states sometimes she wakes in the middle of the night short of breath. She does sleep on a few pillows, has a known history of congestive heart failure. She is been taking her medications as prescribed. She saw her primary care provider earlier this week. He wrote her prescription for Zithromax, which she finished today. She states she really does not see any improvement. She is currently awaiting referral on to pulmonology. She states she has chronic lower extremity edema t hat is actually much improved over what it has been in the past. - Related Data Allergies/Adverse Reactions: codeine [Codeine] Allergy (Intermediate, Verified 11/04/19 18:36) severe nausea Home Medications: Aspirin, Entresto, Lasix, atorvastatin, Synthroid, omeprazole Past Medical History - General Information source: Patient - Social History Smoking Status: Former Smoker Chew tobacco use (# tins/day): No Frequency of alcohol use: None Drug Abuse: None Family History: CAD Patient has suicidal ideation: No Patient has homicidal ideation: No - Past Medical History Cardiac Medical History: Reports: Hx Congestive Heart Failure, Hx Coronary Artery Disease, Hx Heart Attack - 06/2000 , Hx Hypercholesterolemia, Hx Hypertension - meds since 1999 Denies: Hx Atrial Fibrillation, Hx Peripheral Vascular Disease, Hx Pulmonary Embolism, Hx Heart Murmur Pulmonary Medical History: Reports: Hx Bronchitis, Hx Pneumonia - viral 12 yrs ago Denies: Hx Asthma, Hx COPD, Hx Respiratory Failure, Hx Sleep Apnea, Hx Tuber culosis Neurological Medical History: Denies: Hx Cerebrovascular Accident, Hx Seizures, Hx Parkinson's Disease Endocrine Medical History: Reports: Hx Hypothyroidism. Denies: Hx Graves' Disease, Hx Hyperthyroidism Renal/ Medical History: Denies: Hx End Stage Renal Disease, Hx Kidney Stones, Hx Ovarian Cysts, Hx Peritoneal Dialysis, Hx Pelvic Inflammatory Disease Malignancy Medical History: Denies: Hx Breast Cancer, Hx Cervical Cancer, Hx Leukemia, Hx Lung Cancer, Hx Ovarian Cancer GI Medical History: Reports: Hx Gastroesophageal Reflux Disease, Hx Irritable Bowel, Hx Ulcer - stomach. Denies: Hx Crohn's Disease, Hx Hiatal Hernia, Hx Liver Failure, Hx Pancreatitis Musculoskeletal Medical History: Reports Hx Arthritis - all over, Denies Hx Fibromyalgia, Denies Hx Multiple Sclerosis, Denies Hx Muscular Dystrophy, Denies Hx Systemic Lupus Erythematosus Psychiatric Medical History: Denies: Hx Bipolar Disorder, Hx Dementia, Hx Depression, Hx Post Traumatic Stress Disorder, Hx Schizophrenia Traumatic Medical History: Reports: Hx Fractures - broken rt arm when a child Infectious Medical History: Denies: Hx HIV Past Surgical History: Reports: Hx Coronary Artery Bypass Graft, Hx Hysterectomy. Denies: Hx Colostomy, Hx Pacemaker - Immunizations Hx Diphtheria, Pertussis, Tetanus Vaccination: Yes Hx Pneumococcal Vaccination: 10/30/09 Review of Systems - Review of Systems Constitutional: No symptoms reported EENT: No symptoms reported Cardiovascular: See HPI Respiratory: See HPI Gastrointestinal: No symptoms reported Genitourinary: No symptoms reported Musculoskeletal: No symptoms reported Skin: No symptoms reported Neurological/Psychological: No symptoms reported Physical Exam - Vital signs Vitals: Temp Pulse Resp BP Pulse Ox 98.6 F 67 18 124/72 100 11/04/19 16:44 11/04/19 16:44 11/04/19 16:44 11/04/19 16:44 11/04/19 16:44 - Notes Notes: Is a pleasant 89-year-old female who appears younger than her stated age in no acute distress. Vital signs reviewed, please refer to chart. Head is normocephalic, atraum reveal mildly diminished breath sounds at the right base, but otherwise are clear. Abdomen is soft, nontender, normoactive bowel sounds throughout. Extremities without cyanosis, clubbing. Posterior calves are nontender. She does have trace ankle edema bilaterally. Peripheral pulses are equal. Skin is warm and dry. Patient is awake, alert, neurological exam is nonfocal. Course - Re-evaluation Re-evalutation: 11/04/19 20:53 Patient presents to the emergency department for evaluation. She had laboratory investigations EKG and influenza swab ordered. Laboratory investigations revealed an elevated proBNP, but this is not new. It has been higher in the past. Her chest x-ray shows a pleural effusion which is slightly larger from study performed back in July. Otherwise, cardiac enzymes are negative. She has had no chest pain. At this point, the patient is between 96 to 99% on room air. She is not having significant dyspnea. I do not have a clear etiology for the pleural effusion, but I do believe that it would be appropriately cared for outpatient by pulmonology. She is currently awaiting this referral. At this point, I will go ahead and give her an IV dose of Lasix. I will have her increase her Lasix from 10 to 20 mg for the next 2 days. I will also write her prescription for Levaquin to cover as this is an infectious pleural effusion, although this is lower my differential. I explained to the patient that if she develops any worsening symptoms of any sort, she needs to return immediately to the emergency department for evaluation. Patient's care plan and diagnosis was explained in great detail to the patient as well as her son and [id number]. They all voiced understanding, had no questions, the patient will be discharged. 11/04/19 20:58 Because the patient's creatinine is borderline, and her age, I am inclined to renally dose her Levaquin. She will be given every other day dosing for 2 doses. 11/04/19 21:11 After reviewing her chart, I did also note that her QT interval was borderline prolonged. I decided not to use Levaquin, will treat patient with doxycycline. This medication of been pulled from the [facility] by nursing, but was not administered to the patient. - Vital Signs Vital signs: Temp Pulse Resp BP Pulse Ox 97.9 F 69 20 153/72 H 97 11/04/19 21:32 11/04/19 21:32 11/04/19 21:32 11/04/19 21:32 11/04/19 21:32 - Laboratory Result Diagrams: 11/04/19 19:05 11/04/19 19:05 Laboratory results interpreted by me: 11/04/19 11/04/19 11/04/19 19:05 19:05 19:05 WBC 3.2 L RDW 15.2 H Sodium 135.1 L Est GFR (MDRD) Non-Af 53 L Direct Bilirubin 0.5 H AST 103 H Alkaline Phosphatase 178 H NT-Pro-B Natriuret Pep 88107 H - Diagnostic Test Radiology reviewed: Image reviewed, Reports reviewed Radiology results interpreted by me: 11/04/19 20:55 Chest X-Ray 11/04/19 17:36 IMPRESSION: COPD. CHRONIC SCARRING. RIGHT PLEURAL EFFUSION SLIGHTLY LARGER COMPARED TO THE PRIOR STUDY. - EKG Interpretation by Me Additional EKG results interpreted by me: 11/04/19 20:55 Sinus mechanism with rate of 72 bpm, PAC noted. Normal axis. Borderline prolonged QT interval. Nonspecific ST changes, but no acute ST changes concerning for infarction. No significant change when compared to prior study. Discharge - Discharge Clinical Impression: Pleural effusion, right Condition: Stable Disposition: HOME, SELF-CARE Instructions: Dyspnea, Nonspecific ([facility]), Pleural Effusion ([facility]) Additional Instructions: You have been given a dose of IV Lasix here. Please take 20 mg (1 whole tab) of Lasix daily for the next 2 days. Take the doxycycline as prescribed, starting tomorrow. Please follow-up with primary care this week, and seek out referral onto pulmonology as discussed. If you develop chest pain, worsening difficulty breathing, or any other new or concerning symptoms of any sort, please return immediately to the emergency department for reevaluation. Prescriptions: Doxycycline Hyclate 100 mg PO BID #13 capsule Levofloxacin [Levaquin 750 mg Tablet] 750 mg PO ASDIR PRN #3 tablet PRN Reason: Referrals: CHEVY GONSALVES MD [Primary Care Provider] - Follow up as needed
[2019-11-04] MEDS: LEVOFLOXACIN 750 MG TABLET PO ONE ×2 (21:07→21:32)
[2019-11-04] MEDS ORDERED: DOXYCYCLINE HYCLATE 100 MG TABLET PO ONE (21:12)
[2019-11-04 21:33] VITALS: BP 153/72
--- NOTE | 2019-11-04 22:20 | EKG REPORT ---
SEVERITY:- ABNORMAL ECG - SINUS RHYTHM MULTIPLE ATRIAL PREMATURE COMPLEXES LOW VOLTAGE IN FRONTAL LEADS BORDERLINE PROLONGED QT INTERVAL : Confirmed by: Bjorn Pal 04-Nov-2019 22:19:12
== END 2019-11-04 21:33 | disposition home or self-care (01) ==
LOC: ER 16:28
DX: I11.0 Hypertensive heart disease with heart failure (principal); I50.9 Heart failure, unspecified; J44.9 Chronic obstructive pulmonary disease, unspecified; I49.1 Atrial premature depolarization; E78.00 Pure hypercholesterolemia, unspecified; E03.9 Hypothyroidism, unspecified; K21.9 Gastro-esophageal reflux disease without esophagitis; Z79.899 Other long term (current) drug therapy; Z79.82 Long term (current) use of aspirin; Z88.6 Allergy status to analgesic agent; Z88.5 Allergy status to narcotic agent
CPT/HCPCS: 99285; 96374; 36415; 85025; 80053; 84484; 87804; 83880; 71046; 93005; 93010; A9270; J1940

== ENCOUNTER 2019-11-08 13:29 | Inpatient (IN) | payer MEDICARE, OTHER ==
--- NOTE | 2019-11-08 13:48 | ER Document Report ---
ED Medical Screen (RME) - General Chief Complaint: Shortness Of Breath Stated Complaint: DIFFICULTY BREATHING Time Seen by Provider: 11/08/19 13:42 Primary Care Provider: CHEVY GONSALVES MD [Primary Care Provider] - Follow up as needed TRAVEL OUTSIDE OF THE [place] IN LAST 30 DAYS: No - HPI Notes: 11/08/19 13:47 Patient is an 89-year-old female with a history of coronary artery disease, hypertension, congestive heart failure who presents for reevaluation of her shortness of breath. Patient was here several days ago and was found to have a right pleural effusion that is larger than previous imaging. She does continue to have a cough. No fever. I have treated and performed a rapid initial assessment of this patient. A comprehensive ED assessment and evaluation of the patient, analysis of test results and completion of medical decision making process will be conducted by additional ED providers. PHYSICAL EXAMINATION: GENERAL: Well-appearing, well-nourished and in no acute distress. A&Ox4. Answers questions appropriately. Lungs: Diminished breath sounds right base. No retractions. - Related Data Allergies/Adverse Reactions: codeine [Codeine] Allergy (Intermediate, Verified 11/08/19 13:36) severe nausea Past Medical History - Past Medical History Cardiac Medical History: Reports: Hx Congestive Heart Failure, Hx Coronary Artery Disease, Hx Heart Attack - 06/2000 , Hx Hypercholesterolemia, Hx Hypertension - meds since 1999 Denies: Hx Atrial Fibrillation, Hx Peripheral Vascular Disease, Hx Pulmonary Embolism, Hx Heart Murmur Pulmonary Medical History: Reports: Hx Bronchitis, Hx Pneumonia - viral 12 yrs ago Denies: Hx Asthma, Hx COPD, Hx Respiratory Failure, Hx Sleep Apnea, Hx Tuberculosis Neurological Medical History: Denies: Hx Cerebrovascular Accident, Hx Seizures, Hx Parkinson's Disease Endocrine Medical History: Reports: Hx Hypothyroidism. Denies: Hx Graves' Disease, Hx Hyperthyroidism Renal/ Medical History: Denies: Hx End Stage Renal Disease, Hx Kidney Stones, Hx Ovarian Cysts, Hx Peritoneal Dialysis, Hx Pelvic Inflammatory Disease Malignancy Medical History: Denies: Hx Breast Cancer, Hx Cervical Cancer, Hx Leukemia, Hx Lung Cancer, Hx Ovarian Cancer GI Medical History: Reports: Hx Gastroesophageal Reflux Disease, Hx Irritable Bowel, Hx Ulcer - stomach. Denies: Hx Crohn's Disease, Hx Hiatal Hernia, Hx Liver Failure, Hx Pancreatitis Musculoskeltal Medical History: Reports Hx Arthritis - all over, Denies Hx Fibromyalgia, Denies Hx Multiple Sclerosis, Denies Hx Muscular Dystrophy, Denies Hx Systemic Lupus Erythematosus Psychiatric Medical History: Denies: Hx Bipolar Disorder, Hx Dementia, Hx Depression, Hx Post Traumatic Stress Disorder, Hx Schizophrenia Traumatic Medical History: Reports: Hx Fractures - broken rt arm when a child Infectious Medical History: Denies: Hx HIV Past Surgical History: Reports: Hx Coronary Artery Bypass Graft, Hx Hysterectomy. Denies: Hx Colostomy, Hx Pacemaker - Immunizations Hx Diphtheria, Pertussis, Tetanus Vaccination: Yes Physical Exam - Vital signs Vitals: Temp Pulse Resp BP Pulse Ox 97.9 F 91 20 142/42 H 98 11/08/19 13:34 11/08/19 13:34 11/08/19 13:34 11/08/19 13:34 11/08/19 13:34 Course - Vital Signs Vital signs: Temp Pulse Resp BP Pulse Ox 97.9 F 91 20 142/42 H 98 11/08/19 13:34 11/08/19 13:34 11/08/19 13:34 11/08/19 13:34 11/08/19 13:34 Doctor's Discharge - Discharge Referrals: CHEVY GONSALVES MD [Primary Care Provider] - Follow up as needed
--- NOTE | 2019-11-08 14:45 | RADIOLOGY REPORT (SQ) ---
EXAM DESCRIPTION: CHEST 2 VIEWS COMPLETED DATE/TIME: 11/08/2019 1:17 pm REASON FOR STUDY: SOB COMPARISON: 08/15/2019 EXAM PARAMETERS: NUMBER OF VIEWS: two views TECHNIQUE: Digital Frontal and Lateral radiographic views of the chest acquired. RADIATION DOSE: NA LIMITATIONS: none FINDINGS: LUNGS AND PLEURA: There is a small right pleural effusion, increased from prior. Patchy a telectasis/ consolidation at the right lung base not significantly changed. Small amount of fluid in the right fissure. The left lung is clear. Lungs are hyperinflated. No pneumothorax. MEDIASTINUM AND HILAR STRUCTURES: No masses or contour abnormalities. HEART AND VASCULAR STRUCTURES: Heart normal size. No evidence for failure. BONES: No acute findings. HARDWARE: None in the chest. OTHER: No other significant finding. IMPRESSION: Increased small right pleural effusion with compressive atelectasis/ consolidation at th e right lung base. TECHNICAL DOCUMENTATION: JOB ID: [id number]- All Rights Reserved Reading location - IP/workstation name: [email or web address]
[2019-11-08 14:49] LABS: ABSOLUTE MONOCYTES (AUTO) 0.3 10^3/uL (0.1-1.4); ABSOLUTE NEUT (AUTO) 2.3 10^3/uL (1.7-8.2); BASOPHILS % (AUTO) 0.8 % (0-2); EOSINOPHILS % (AUTO) 1.1 % (0-6); HEMATOCRIT 37.6 % (36.0-47.0); HEMOGLOBIN 12.6 g/dL (12.0-15.5); LYMPHOCYTES % (AUTO) 26.2 % (13-45); MEAN CORPUSCULAR HEMOGLOBIN 30.6 pg (27.0-33.4); MEAN CORPUSCULAR HGB CONC 33.6 g/dL (32.0-36.0); MEAN CORPUSCULAR VOLUME 91 fl (80-97); MONOCYTES % (AUTO) 7.7 % (3-13); PLATELET COUNT 180 10^3/uL (150-450); RED BLOOD COUNT 4.13 10^6/uL (3.72-5.28); RED CELL DISTRIBUTION WIDTH 14.6 % (11.5-14.0); SEGMENTED NEUTROPHILS % (AUTO) 64.2 % (42-78); TOTAL CELLS COUNTED % (AUTO) 100 %; WHITE BLOOD COUNT 3.6 10^3/uL (4.0-10.5)
[2019-11-08 15:10] LABS: ALBUMIN 3.8 g/dL (3.5-5.0); ALKALINE PHOSPHATASE 170 U/L (38-126); ANION GAP 10 (5-19); ASPARTATE AMINO TRANSFERASE 88 U/L (14-36); BILIRUBIN,DIRECT 0.6 mg/dL (0.0-0.4); BILIRUBIN,TOTAL 0.9 mg/dL (0.2-1.3); BLOOD UREA NITROGEN 21 mg/dL (7-20); CALCIUM 9.2 mg/dL (8.4-10.2); CARBON DIOXIDE 28 mmol/L (22-30); CHLORIDE 98 mmol/L (98-107); GLUCOSE 112 mg/dL (75-110); POTASSIUM 4.1 mmol/L (3.6-5.0); TOTAL PROTEIN 6.7 g/dL (6.3-8.2)
[2019-11-08 15:20] LABS: NT PRO BNP 13100 pg/mL (<450)
[2019-11-08 15:28] LABS: TROPONIN I < 0.012 ng/mL
--- NOTE | 2019-11-08 16:14 | ER Document Report ---
Entered by WARNER NASH SCRIBE 11/08/19 1549 Acting as scribe for:VIJAYA WALTON IV, MD ED Respiratory Problem - General Chief Complaint: Shortness Of Breath Stated Complaint: DIFFICULTY BREATHING Time Seen by Provider: 11/08/19 13:42 Primary Care Provider: CHEVY GONSALVES MD [Primary Care Provider] - Follow up as needed Information source: Patient Notes: This 89 year old female patient with CHF, COPD, and HTN presents to the emergency department today for complaints of continued shortness of breath and a cough. Patient was seen here at this facility on on 11/04/2019 (x4 days ago) and actually appeared to be non-toxic and was appropriately discharged with outpatient follow up. Patient states her symptoms have remained present and maybe a little worse today. TRAVEL OUTSIDE OF THE [place] IN LAST 30 DAYS: No - Related Data Allergies/Adverse Reactions: codeine [Codeine] Allergy (Intermediate, Verified 11/08/19 13:36) severe nausea Past Medical History - General Information source: Patient, [facility] - Social History Smoking Status: Former Smoker Frequency of alcohol use: None Drug Abuse: None Lives with: Family Family History: Reviewed & Not Pertinent, CAD Patient has suicidal ideation: No Patient has homicidal ideation: No - Past Medical History Cardiac Medical History: Reports: Hx Congestive Heart Failure, Hx Coronary Artery Disease, Hx Heart Attack - 06/2000 , Hx Hypercholesterolemia, Hx Hypertension - meds since 1999 Pulmonary Medical History: Reports: Hx Bronchitis, Hx Pneumonia - viral 12 yrs ago Endocrine Medical History: Reports: Hx Hypothyroidism GI Medical History: Reports: Hx Gastroesophageal Reflux Disease, Hx Irritable Bowel, Hx Ulcer - stomach Musculoskeletal Medical History: Reports Hx Arthritis - all over Traumatic Medical History: Reports: Hx Fractures - broken rt arm when a child Past Surgical History: Reports: Hx Coronary Artery Bypass Graft, Hx Hysterectomy - Immunizations Hx Diphtheria, Pertussis, Tetanus Vaccination: Yes Hx Pneumococcal Vaccination: 10/30/09 Review of Systems - Review of Systems Constitutional: denies: Fever EENT: No symptoms reported Cardiovascular: denies: Chest pain Respiratory: See HPI, Cough, Short of breath Gastrointestinal: No symptoms reported Genitourinary: No symptoms reported Female Genitourinary: No symptoms reported Musculoskeletal: No symptoms reported Skin: No symptoms reported Hematologic/Lymphatic: No symptoms reported Neurological/Psychological: No symptoms reported -: Yes All other systems reviewed and negative Physical Exam - Vital signs Vitals: Temp Pulse Resp BP Pulse Ox 97.9 F 91 20 142/42 H 98 11/08/19 13:34 11/08/19 13:34 11/08/19 13:34 11/08/19 13:34 11/08/19 13:34 Interpretation: Normal - General General appearance: Appears well, Alert - HEENT Head: Normocephalic, Atraumatic Eyes: Normal Pupils: PERRL - Respiratory Respiratory status: No respiratory distress Chest status: Nontender Breath sounds: Other - Diminished breath sounds bilaterally. Slight rales on the right. - Cardiovascular Rhythm: Regular Heart sounds: Normal auscultation Murmur: No - Abdominal Inspection: Normal Distension: No distension Bowel sounds: Normal Tenderness: Nontender Organomegaly: No organomegaly - Back Back: Normal, Nontender - Extremities General upper extremity: Normal inspection, Nontender. No: Edema General lower extremity: Normal inspection, Nontender. No: Edema - Neurological Neuro grossly intact: Yes Cognition: Normal Orientation: AAOx4 Nam Coma Scale Eye Opening: Spontaneous Nam Coma Scale Verbal: Oriented [place] Coma Scale Motor: Obeys Commands [place] Coma Scale Total: 15 Speech: Normal - Psychological Associated symptoms: Normal affect, Normal mood - Skin Skin Temperature: Warm Skin Moisture: Dry Skin Color: Normal Course - Re-evaluation Re-evalutation: 11/08/19 16:59 Patient was walked approximately 50 feet down the [address] and be came sym ptomatically short of breath and tachypneic. Patient was returned to her room and placed on 2 L of oxygen via nasal cannula - Vital Signs Vital signs: Temp Pulse Resp BP Pulse Ox 97.9 F 91 20 142/42 H 99 11/08/19 13:34 11/08/19 13:34 11/08/19 13:34 11/08/19 13:34 11/08/19 14:44 11/08/19 17:00 Vital signs reviewed by this . - Laboratory Result Diagrams: 11/08/19 14:35 11/08/19 14:35 Laboratory results interpreted by me: 11/08/19 11/08/19 11/08/19 14:35 14:35 14:35 WBC 3.6 L RDW 14.6 H Carbonic Acid ABG pH ABG pCO2 ABG pO2 Sodium 135.9 L BUN 21 H Glucose 112 H Direct Bilirubin 0.6 H AST 88 H Alkaline Phosphatase 170 H NT-Pro-B Natriuret Pep 92543 H 11/08/19 16:24 WBC RDW Carbonic Acid 0.99 L ABG pH 7.48 H ABG pCO2 32.9 L ABG pO2 73.7 L Sodium BUN Glucose Direct Bilirubin AST Alkaline Phosphatase NT-Pro-B Natriuret Pep 11/08/19 17:00 All lab results reviewed by this MD. - EKG Interpretation by Me Additional EKG results interpreted by me: 11/08/19 17:00 EKG obtained on 11/08/2019 1354 hrs. was interpreted by this MD. Findings: Normal sinus rhythm, rate 78, normal axis, P waves preceding QRS complexes, QRS complexes appear narrow, there are no obvious patterns of ST segment elevation or depression to suggest acute myocardial ischemia or infarction. Impression normal sinus rhythm with nonspecific ST segments. - Consults DR. DELISA TOLLIVER Time consulted: 17:00 - HOSPITALIST Reason for consultation: 11/08/19 17:03 CHF EXACERBATION WITH HYPOXIA Consulted provider: will come to ER Discharge - Discharge Clinical Impression: Hypoxia CHF exacerbation Qualifiers: Heart failure type: unspecified Qualified Code(s): I50.9 - Heart failure, unspecified Condition: Good Disposition: ADMITTED OBSERVATION Admitting Provider: DR. TOLLIVER, HOSPITALIST Unit Admitted: Telemetry Referrals: CHEVY GONSALVES MD [Primary Care Provider] - Follow up as needed I personally performed the services described in the documentation, reviewed and edited the documentation which was dictated to the scribe in my presence, and it accurately records my words and actions.
[2019-11-08 16:42] LABS: ARTERIAL BLOOD BASE EXCESS 0.8 mmol/L; ARTERIAL BLOOD H2CO3 0.99 mmol/L (1.05-1.35); ARTERIAL BLOOD HCO3 23.8 mmol/L (20-24); ARTERIAL BLOOD O2 SATURATION 95.8 % (94-98); ARTERIAL BLOOD PCO2 32.9 mmHg (35-45); ARTERIAL BLOOD PH 7.48 (7.35-7.45); ARTERIAL BLOOD PO2 73.7 mmHg (80-100); ARTERIAL BLOOD TOTAL CO2 24.8 mmol/L (21-25)
[2019-11-08 16:43] LABS: ARTERIAL BLOOD FIO2 21%
[2019-11-08] MEDS ORDERED: FUROSEMIDE INJ/PF 40 MG/4 ML SDV IV ONE (16:58)
[2019-11-08 17:48] LABS: APPEARANCE,URINE SLIGHTLY-CLOUDY; BILIRUBIN,URINE NEGATIVE (NEGATIVE); COLOR,URINE YELLOW; GLUCOSE, URINE NEGATIVE (NEGATIVE); KETONES,URINE NEGATIVE (NEGATIVE); PROTEIN,URINE 30 mg/dL (NEGATIVE); URINE SPECIFIC GRAVITY 1.015; UROBILINOGEN,URINE NEGATIVE mg/dL (<2.0)
[2019-11-08] MEDS ORDERED: ONDANSETRON 4 MG TAB.RAPDIS PO PRN (18:56)
[2019-11-08] MEDS ORDERED: ACETAMINOPHEN 650 MG SUPP.RECT PR PRN (18:56)
[2019-11-08] MEDS ORDERED: ACETAMINOPHEN 325 MG TABLET PO PRN (18:56)
--- NOTE | 2019-11-08 19:32 | PDOC H&P ---
History of Present Illness Admission Date/PCP: 11/08/19 17:08 CHEVY GONSALVES MD History of Present Illness: TRUDY REILLY is a 89 year old female with past medical history of combined systolic diastolic heart failure exacerbation, acute hypoxemic respiratory failure, chills/rigors, BLE edema. For the past 3 weeks PSYCHIATRY ADULT PHYSICIAN patient has been having progressive shortness of breath, generalized fatigue and weakness, and chills/Reiger's. 2 weeks PSYCHIATRY ADULT PHYSICIAN her PCP gave her an antibiotic course which had no effect per patient. 1 week later patient was given a larger dose of her home Lasix and this was not effective in helping her breathing problems either. On day of admission, patient was notably dyspneic with PaO2 down to 70s. Blood pressure mildly elevated, not tachycardic, negative troponin, BNP up to 13,000. Given IV Lasix in the ED with some mild improvement but still extremely dyspneic whenever she removes supplemental oxygen. Patient did develop community- acquired pneumonia in July and was seen in the hospital for this per patient and daughter. Admitted for further evaluation work-up. Past Medical History Cardiac Medical History: Reports: Congestive Heart Failure, Coronary Artery Disease, Myocardial Infarction - 06/2000 , Hyperlipidema, Hypertension - meds since 1999 Denies: Atrial Fibrillation, Peripheral Vascular Disease, Pulmonary Embolism, Heart Murmur Pulmonary Medical History: Reports: Bronchitis, Pneumonia - viral 12 yrs ago Denies: Asthma, Chronic Obstructive Pulmonary Disease (COPD), Respiratory Failure, Sleep Apnea, Tuberculosis Neurological Medical History: Denies: Seizures Endocrine Medical History: Reports: Hypothyroidism Denies: Hyperthyroidism Renal/ Medical History: Denies: End Stage Renal Disease Malignancy Medical History: Denies: Breast Cancer, Cervical Cancer, Leukemia, Lung Cancer, Ovarian Cancer GI Medical History: Reports: Gastroesophageal Reflux Disease Denies: Crohn's Disease, Hiatal Hernia Musculoskeltal Medical History: Reports: Arthritis - all over Denies: Fibromyalgia Psychiatric Medical History: Denies: Bipolar Disorder, Dementia, Depression, Post Traumatic Stress Disorder Hematology: Denies: Anemia, Hemophilia, Sickle Cell Disease Infectious Medical History: Denies: HIV Past Surgical History Past Surgical History: Reports: Coronary Artery Bypass Graft, Hysterectomy Denies: Amputation, Colostomy, Pacemaker Social History Lives with: Family Smoking Status: Former Smoker Frequency of Alcohol Use: None Hx Recreational Drug Use: No Hx Prescription Drug Abuse: No - Advance Directive Resuscitation Status: Do Not Resuscitate Family History Family History: Reviewed & Not Pertinent, CAD, Malignancy Parental Family History Reviewed: Yes Children Family History Reviewed: No Sibling(s) Family History Reviewed.: No Medication/Allergy Home Medications: Aspirin [Ecotrin 81 mg EC Tablet] 81 mg PO DAILY 08/15/19 Atorvastatin Calcium [Lipitor 10 mg Tablet] 10 mg PO QHS 08/15/19 Carvedilol [Coreg 25 mg Tablet] 25 mg PO Q12 08/15/19 Levothyroxine Sodium [Synthroid 0.088 mg Tablet] 0.088 mg PO Q6AM 08/15/19 Omeprazole 20 mg PO DAILY 08/15/19 Sacubitril/Valsartan [Entresto 49 mg/51 mg Tablet] 1 tab PO Q12 08/15/19 Azithromycin [Zithromax 250 mg Tablet] 250 mg PO ASDIR PRN #6 tablet 08/18/19 Carvedilol [Coreg 12.5 mg Tablet] 25 mg PO Q12 tablet 08/18/19 Furosemide [Lasix 20 mg Tablet] 10 mg PO QAM #10 tablet 08/18/19 Levothyroxine Sodium [Synthroid 0.088 mg Tablet] 0.088 mg PO Q6AM tablet 08/18/19 Magnesium Oxide [Mag-Ox 400 mg Tablet] 400 mg PO BID #30 tablet 08/18/19 Sacubitril/Valsartan [Entresto 49 mg/51 mg Tablet] 1 tab PO Q12 tablet 08/18/19 Doxycycline Hyclate 100 mg PO BID #13 capsule 11/04/19 Levofloxacin [Levaquin 750 mg Tablet] 750 mg PO ASDIR PRN #3 tablet 11/04/19 Allergies/Adverse Reactions: codeine [Codeine] Allergy (Intermediate, Verified 11/08/19 13:36) severe nausea Review of Systems Constitutional: PRESENT: as per HPI Eyes: PRESENT: as per HPI Ears: PRESENT: as per HPI Nose, Mouth, and Throat: PRESENT: as per HPI Breasts: PRESENT: as per HPI Cardiovascular: PRESENT: as per HPI Respiratory: PRESENT: as per HPI Gastrointestinal: PRESENT: as per HPI Genitourinary: PRESENT: as per HPI Musculoskeletal: PRESENT: as per HPI Integumentary: PRESENT: as per HPI Neurological: PRESENT: as per HPI Psychiatric: PRESENT: as per HPI Endocrine: PRESENT: as per HPI Hematologic/Lymphatic: PRESENT: as per HPI Allergic/Immunologic: PRESENT: as per HPI Physical Exam Vital Signs: Temp Pulse Resp BP Pulse Ox 97.9 F 91 22 H 141/99 H 99 11/08/19 13:34 11/08/19 13:34 11/08/19 17:01 11/08/19 17:01 11/08/19 17:01 Intake & Output 11/07/19 11/08/19 11/09/19 06:59 06:59 06:59 Weight 47.2 kg General appearance: PRESENT: cooperative, mild distress Head exam: PRESENT: atraumatic, normocephalic Eye exam: PRESENT: conjunctiva pink Respiratory exam: PRESENT: crackles - Very minimal, tachypnea. ABSENT: accessory muscle use Cardiovascular exam: PRESENT: RRR. ABSENT: diastolic murmur, rubs, systolic murmur GI/Abdominal exam: PRESENT: normal bowel sounds, soft. ABSENT: distended, guarding, mass, organolmegaly, rebound, tenderness Extremities exam: PRESENT: +1 edema Neurological exam: PRESENT: alert, awake, oriented to person, oriented to place, oriented to time, oriented to situation, CN II-XII grossly intact. ABSENT: motor sensory deficit Psychiatric exam: PRESENT: appropriate affect, normal mood Skin exam: PRESENT: dry, intact, warm Results Laboratory Results: 11/08/19 14:35 11/08/19 14:35 11/08/19 11/08/19 11/08/19 14:35 14:35 16:24 WBC 3.6 L RBC 4.13 Hgb 12.6 Hct 37.6 MCV 91 MCH 30.6 MCHC 33.6 RDW 14.6 H Plt Count 180 Seg Neutrophils % 64.2 Carbonic Acid 0.99 L HCO3/H2CO3 Ratio 24:1 ABG pH 7.48 H ABG pCO2 32.9 L ABG pO2 73.7 L ABG HCO3 23.8 ABG O2 Saturation 95.8 ABG Base Excess 0.8 FiO2 21% Sodium 135.9 L Potassium 4.1 Chloride 98 Carbon Dioxide 28 Anion Gap 10 BUN 21 H Creatinine 0.88 Est GFR ( Amer) > 60 Glucose 112 H Calcium 9.2 Total Bilirubin 0.9 AST 88 H Alkaline Phosphatase 170 H Total Protein 6.7 Albumin 3.8 Urine Color Urine Appearance Urine pH Ur Specific [place] Urine Protein Urine Glucose (UA) Urine Ketones Urine Blood Urine RBC (Auto) 11/08/19 17:15 WBC RBC Hgb Hct MCV MCH MCHC RDW Plt Count Seg Neutrophils % Carbonic Acid HCO3/H2CO3 Ratio ABG pH ABG pCO2 ABG pO2 ABG HCO3 ABG O2 Saturation ABG Base Excess FiO2 Sodium Potassium Chloride Carbon Dioxide Anion Gap BUN Creatinine Est GFR ( Amer) Glucose Calcium Total Bilirubin AST Alkaline Phosphatase Total Protein Albumin Urine Color YELLOW Urine Appearance SLIGHTLY-CLOUDY Urine pH 5.0 Ur Specific [place] 1.015 Urine Protein 30 H Urine Glucose (UA) NEGATIVE Urine Ketones NEGATIVE Urine Blood SMALL H Urine RBC (Auto) 6 11/08/19 14:35 Troponin I < 0.012 NT-Pro-B Natriuret Pep 29610 H Impressions: Chest X-Ray 11/08/19 13:46 IMPRESSION: Increased small right pleural effusion with compressive atelectasis/ consolidation at the right lung base. Assessment and Plan - Diagnosis (1) Acute on chronic respiratory failure with hypoxemia Is this a current diagnosis for this admission?: Yes Plan: Due to acute on chronic CHF versus atypical pneumonia versus PE No history of DVT or PE however patient states her right leg is significantly more edematous than her left which is a new change Diuresis Consider antibiotics pending imaging results though no specific signs of infection Supplemental oxygen as needed to maintain saturation above 94% (2) Acute systolic congestive heart failure Is this a current diagnosis for this admission?: Yes Plan: On admission chest exam did not reveal significant crackles that she may have severe interstitial edema Echocardiogram ordered IV Lasix twice daily Continue home cardiac medications (3) Coronary artery disease Qualifiers: Coronary Disease-Associated Artery/Lesion type: unspecified vessel or lesion type [place] vs. transplanted heart: [place] heart Associated angina: without angina Qualified Code(s): I25.10 - Atherosclerotic heart disease of [place] coronary artery without angina pectoris Is this a current diagnosis for this admission?: Yes Plan: Status post CABG in [address] Pal per patient Previous echocardiogram in our records show significant systolic and diastolic CHF after her [place] Aspirin, statin (4) GERD (gastroesophageal reflux disease) Qualifiers: Esophagitis presence: without esophagitis Qualified Code(s): K21.9 - Gastro-esophageal reflux disease without esophagitis Is this a current diagnosis for this admission?: Yes (5) Hx of CABG Is this a current diagnosis for this admission?: Yes (6) Hyperlipidemia Is this a current diagnosis for this admission?: Yes Plan: Continue statin (7) Hypothyroidism Is this a current diagnosis for this admission?: Yes Plan: Continue Synthroid (8) Moderate to severe pulmonary hypertension Is this a current diagnosis for this admission?: Yes Plan: Consider cardiology consult if no improvement (9) Advance care planning Is this a current diagnosis for this admission?: Yes Plan: . 60 minutes of advance care planning time spent with patient and family discussing CODE STATUS including chest compressions/cardioversion/intubation. Patient indicates she does want to be DNR/DNI and she wants her medical power of application services manager to be her daughter Ai Rizvi [phone] - Time Time Spent with patient: 35 or more minutes Medications reviewed and adjusted accordingly: Yes Anticipated discharge: Home Within: within 72 hours - Inpatient Certification Medical Necessity: Need Close Monitoring Due to Risk of Patient Decompensation, Risk of Complication if Not Cared For in Hospital
[2019-11-08 20:29] LABS: ANION GAP 8 (5-19); BLOOD UREA NITROGEN 21 mg/dL (7-20); CARBON DIOXIDE 31 mmol/L (22-30); CHLORIDE 97 mmol/L (98-107); GLUCOSE 94 mg/dL (75-110); POTASSIUM 3.9 mmol/L (3.6-5.0)
--- NOTE | 2019-11-08 21:02 | EKG REPORT ---
SEVERITY:- ABNORMAL ECG - SINUS RHYTHM ABERRANT COMPLEX LOW VOLTAGE IN FRONTAL LEADS BORDERLINE T ABNORMALITIES, LATERAL LEADS : Confirmed by: Bjorn Pal 08-Nov-2019 21:00:58
[2019-11-08] MEDS: HEPARIN SOD (PORCINE) 5,000 UNIT/ML 1 ML VIAL SUBCUT SCH (21:52)
[2019-11-08] MEDS: CARVEDILOL 12.5 MG TABLET PO SCH (21:52)
[2019-11-08] MEDS: SACUBITRIL/VALSARTAN 49 MG/51 MG TABLET PO SCH (21:52)
[2019-11-08] MEDS: FUROSEMIDE INJ/PF 40 MG/4 ML SDV IV SCH (21:53)
[2019-11-08] MEDS: ATORVASTATIN CALCIUM 10 MG TABLET PO SCH (21:53)
--- NOTE | 2019-11-09 01:38 | RADIOLOGY REPORT (SQ) ---
CLINICAL HISTORY: resp failure, possible atypical PNA, possible PE COMPARISON: None. TECHNIQUE: CT CHEST WITH IV CONTRAST on 11/08/2019 12:00 AM COPY LATHE OPERATOR. MIPS reconstructions were generated. This exam was performed according to our departmental dose-optimization program, which includes automated exposure control, adjustment of the mA and/or kV according to patient size and/or use of iterative reconstruction technique. MIP images were generated. FINDINGS: Thoracic aorta is normal in course and caliber without aneurysm or dissection. Pulmonary arteries are adequately opacified without acute or chronic filling defects. The heart is enlarged. There is no pericardial effusion. Intrathoracic lymph nodes are not enlarged. There is a small left pleural effusion. There is a moderate right pleural effusion. Central airways are patent. There is bibasilar atelectasis. There are no acute abnormalities within the limited images of the upper abdomen. There are no acute osseous findings. No suspicious bony lesions. IMPRESSION: Cardiomegaly with no aortic dissection or aneurysm. No pulmonary embolus. Pleural effusions without definite pneumonia.
[2019-11-09 05:26] LABS: ABSOLUTE EOSINOPHILS # (AUTO) 0.1 10^3/uL (0.0-0.6); ABSOLUTE LYMPHOCYTES (AUTO) 1.5 10^3/uL (0.5-4.7); ABSOLUTE MONOCYTES (AUTO) 0.4 10^3/uL (0.1-1.4); ABSOLUTE NEUT (AUTO) 1.8 10^3/uL (1.7-8.2); BASOPHILS % (AUTO) 1.3 % (0-2); EOSINOPHILS % (AUTO) 2.2 % (0-6); HEMATOCRIT 36.2 % (36.0-47.0); HEMOGLOBIN 12.3 g/dL (12.0-15.5); LYMPHOCYTES % (AUTO) 38.9 % (13-45); MEAN CORPUSCULAR HEMOGLOBIN 30.6 pg (27.0-33.4); MEAN CORPUSCULAR VOLUME 90 fl (80-97); MONOCYTES % (AUTO) 9.6 % (3-13); PLATELET COUNT 168 10^3/uL (150-450); RED BLOOD COUNT 4.02 10^6/uL (3.72-5.28); RED CELL DISTRIBUTION WIDTH 14.5 % (11.5-14.0); TOTAL CELLS COUNTED % (AUTO) 100 %; WHITE BLOOD COUNT 3.8 10^3/uL (4.0-10.5)
[2019-11-09] MEDS: HEPARIN SOD (PORCINE) 5,000 UNIT/ML 1 ML VIAL SUBCUT SCH ×3 (05:46→21:33)
[2019-11-09] MEDS: LEVOTHYROXINE SODIUM 0.088 MG TABLET PO SCH (05:46)
[2019-11-09] MEDS ORDERED: MAGNESIUM SULFATE/D5W 1 GM/100 ML RTUPB IV ONE (10:00)
[2019-11-09] MEDS: CARVEDILOL 12.5 MG TABLET PO SCH ×2 (10:01→21:33)
[2019-11-09] MEDS: SACUBITRIL/VALSARTAN 49 MG/51 MG TABLET PO SCH ×2 (10:01→21:33)
[2019-11-09] MEDS: ASPIRIN 81 MG TABLET, CHEWABLE PO SCH (10:01)
[2019-11-09] MEDS: FUROSEMIDE INJ/PF 40 MG/4 ML SDV IV SCH ×2 (10:01→21:33)
--- NOTE | 2019-11-09 14:35 | PDOC PROGRESS REPORT ---
Subjective Subjective:: Patient is a 89-year-old white female who presented with acute on chronic combined CHF exacerbation, acute hypoxemic respiratory failure, pulmonary edema. 11/09: Breathing is notably less labored but not back to baseline and patient still requires supplemental oxygen. She does state she had very good diuresis overnight with a large amount of urine output. CT chest showed moderate right pleural effusion, no PE, no pneumonia. Echocardiogram was done but has not been read by netting weaver yet. She has no new complaints. Reason For Visit: ACUTE ON CHRONIC COMBINED SYSTOLIC AND DIASTOLIC Physical Exam Vital Signs: Temp Pulse Resp BP Pulse Ox 98.1 F 65 18 125/54 L 96 11/09/19 10:00 11/09/19 10:00 11/09/19 10:00 11/09/19 10:00 11/09/19 10:00 Intake & Output 11/08/19 11/09/19 11/10/19 06:59 06:59 06:59 Intake Total 220 335 Balance 220 335 Weight 103.1 kg General appearance: PRESENT: no acute distress, well-developed, well-nourished Head exam: PRESENT: atraumatic, normocephalic Eye exam: PRESENT: conjunctiva pink Mouth exam: PRESENT: moist Respiratory exam: PRESENT: crackles - Perhaps very scant crackles on the right. ABSENT: rales, rhonchi, wheezes Cardiovascular exam: PRESENT: RRR. ABSENT: diastolic murmur, rubs, systolic murmur GI/Abdominal exam: PRESENT: normal bowel sounds, soft. ABSENT: distended, guarding, mass, organolmegaly, rebound, tenderness Neurological exam: PRESENT: alert, awake, oriented to person, oriented to place, oriented to time, oriented to situation Psychiatric exam: PRESENT: appropriate affect, normal mood Skin exam: PRESENT: dry, intact, warm Results Laboratory Results: 11/09/19 04:47 11/08/19 19:39 11/08/19 11/08/19 11/08/19 14:35 14:35 16:24 WBC 3.6 L RBC 4.13 Hgb 12.6 Hct 37.6 MCV 91 MCH 30.6 MCHC 33.6 RDW 14.6 H Plt Count 180 Seg Neutrophils % 64.2 Carbonic Acid 0.99 L HCO3/H2CO3 Ratio 24:1 ABG pH 7.48 H ABG pCO2 32.9 L ABG pO2 73.7 L ABG HCO3 23.8 ABG O2 Saturation 95.8 ABG Base Excess 0.8 FiO2 21% Sodium 135.9 L Potassium 4.1 Chloride 98 Carbon Dioxide 28 Anion Gap 10 BUN 21 H Creatinine 0.88 Est GFR ( Amer) > 60 Glucose 112 H Calcium 9.2 Magnesium Total Bilirubin 0.9 AST 88 H Alkaline Phosphatase 170 H Total Protein 6.7 Albumin 3.8 TSH Urine Color Urine Appearance Urine pH Ur Specific [place] Urine Protein Urine Glucose (UA) Urine Ketones Urine Blood Urine RBC (Auto) 11/08/19 11/08/19 11/09/19 17:15 19:39 04:47 WBC 3.8 L RBC 4.02 Hgb 12.3 Hct 36.2 MCV 90 MCH 30.6 MCHC 34.0 RDW 14.5 H Plt Count 168 Seg Neutrophils % 48.0 Carbonic Acid HCO3/H2CO3 Ratio ABG pH ABG pCO2 ABG pO2 ABG HCO3 ABG O2 Saturation ABG Base Excess FiO2 Sodium 135.9 L Potassium 3.9 Chloride 97 L Carbon Dioxide 31 H Anion Gap 8 BUN 21 H Creatinine 0.94 Est GFR ( Amer) > 60 Glucose 94 Calcium 9.0 Magnesium Total Bilirubin AST Alkaline Phosphatase Total Protein Albumin TSH Urine Color YELLOW Urine Appearance SLIGHTLY-CLOUDY Urine pH 5.0 Ur Specific [place] 1.015 Urine Protein 30 H Urine Glucose (UA) NEGATIVE Urine Ketones NEGATIVE Urine Blood SMALL H Urine RBC (Auto) 6 11/09/19 11/09/19 04:47 04:47 WBC RBC Hgb Hct MCV MCH MCHC RDW Plt Count Seg Neutrophils % Carbonic Acid HCO3/H2CO3 Ratio ABG pH ABG pCO2 ABG pO2 ABG HCO3 ABG O2 Saturation ABG Base Excess FiO2 Sodium Potassium Chloride Carbon Dioxide Anion Gap BUN Creatinine Est GFR ( Amer) Glucose Calcium Magnesium 1.5 L Total Bilirubin AST Alkaline Phosphatase Total Protein Albumin TSH 1.16 Urine Color Urine Appearance Urine pH Ur Specific [place] Urine Protein Urine Glucose (UA) Urine Ketones Urine Blood Urine RBC (Auto) 11/08/19 11/09/19 14:35 04:47 Troponin I < 0.012 NT-Pro-B Natriuret Pep 95530 H 89650 H Impressions: Chest CT 11/08/19 00:00 IMPRESSION: Cardiomegaly with no aortic dissection or aneurysm. No pulmonary embolus. Pleural effusions without definite pneumonia. Chest X-Ray 11/08/19 13:46 IMPRESSION: Increased small right pleural effusion with compressive atelectasis/ consolidation at the right lung base. Assessment and Plan - Diagnosis (1) Acute on chronic respiratory failure with hypoxemia Is this a current diagnosis for this admission?: Yes Plan: Due to acute on chronic CHF and pulmonary hypertension No history of DVT or PE however patient stated her right leg is significantly more edematous than her left which is a new change Diuresis No indication for antibiotics, no specific signs of infection on labs/exam/imaging Supplemental oxygen as needed to maintain saturation above 94% May need cardiology input if her pulmonary hypertension is determined to be primary source of her volume overload and heart failure (2) Acute systolic congestive heart failure Is this a current diagnosis for this admission?: Yes Plan: On admission chest exam did not reveal significant crackles that she may have severe interstitial edema Echocardiogram done but not read IV Lasix twice daily; diuresis continued Continue home cardiac medications Pleural effusion on the right seen on CT chest may be amenable to thoracentesis by IR CT PA showed: No PE, no pneumonia, positive for moderate right pleural effusion (3) Coronary artery disease Qualifiers: Coronary Disease-Associated Artery/Lesion type: unspecified vessel or lesion type [place] vs. transplanted heart: [place] heart Associated angina: without angina Qualified Code(s): I25.10 - Atherosclerotic heart disease of [place] coronary artery without angina pectoris Is this a current diagnosis for this admission?: Yes (4) GERD (gastroesophageal reflux disease) Qualifiers: Esophagitis presence: without esophagitis Qualified Code(s): K21.9 - Gastro-esophageal reflux disease without esophagitis Is this a current diagnosis for this admission?: Yes (5) Hx of CABG Is this a current diagnosis for this admission?: Yes (6) Hyperlipidemia Is this a current diagnosis for this admission?: Yes (7) Hypothyroidism Is this a current diagnosis for this admission?: Yes (8) Moderate to severe pulmonary hypertension Is this a current diagnosis for this admission?: Yes Plan: Consider cardiology consult if no improvement She is not on any specific medication for body hypertension; may benefit from specific cardiac cath testing to eval responsiveness of medications (9) Advance care planning Is this a current diagnosis for this admission?: Yes - Time Time Spent with patient: 25-34 minutes Within: within 72 hours - Inpatient Certification Medical Necessity: Need Close Monitoring Due to Risk of Patient Decompensation, Risk of Complication if Not Cared For in Hospital
[2019-11-09] MEDS: ATORVASTATIN CALCIUM 10 MG TABLET PO SCH (21:33)
[2019-11-10] MEDS: LEVOTHYROXINE SODIUM 0.088 MG TABLET PO SCH (06:04)
[2019-11-10] MEDS: HEPARIN SOD (PORCINE) 5,000 UNIT/ML 1 ML VIAL SUBCUT SCH ×3 (06:04→22:07)
[2019-11-10] MEDS: ASPIRIN 81 MG TABLET, CHEWABLE PO SCH (09:11)
[2019-11-10] MEDS: CARVEDILOL 12.5 MG TABLET PO SCH ×2 (09:11→22:00)
[2019-11-10] MEDS: FUROSEMIDE INJ/PF 40 MG/4 ML SDV IV SCH ×2 (09:11→22:07)
[2019-11-10] MEDS: SACUBITRIL/VALSARTAN 49 MG/51 MG TABLET PO SCH ×2 (09:11→22:07)
[2019-11-10 09:33] LABS: ANION GAP 6 (5-19); BLOOD UREA NITROGEN 20 mg/dL (7-20); CALCIUM 8.3 mg/dL (8.4-10.2); CARBON DIOXIDE 34 mmol/L (22-30); CHLORIDE 94 mmol/L (98-107); GLUCOSE 88 mg/dL (75-110); POTASSIUM 3.8 mmol/L (3.6-5.0)
[2019-11-10] MEDS: MAGNESIUM OXIDE 400 MG TABLET PO SCH (09:58)
--- NOTE | 2019-11-10 15:07 | PDOC PROGRESS REPORT ---
Subjective Subjective:: Patient is a 89-year-old white female who presented with acute on chronic combined CHF exacerbation, acute hypoxemic respiratory failure, pulmonary edema. 11/09: Breathing is notably less labored but not back to baseline and patient still requires supplemental oxygen. She does state she had very good diuresis overnight with a large amount of urine output. CT chest showed moderate right pleural effusion, no PE, no pneumonia. Echocardiogram was done but has not been read by cotton tipper yet. She has no new complaints. 11/10: Her oxygen saturations in the high 90s but she still has nasal cannula on today, patient states she does not think she needs it. We will need to wean this. Her echocardiogram has not yet been read but from the images, it appears she has reduced EF. Patient's breathing is improved and other than generalized fatigue she has no new complaints. Given her history of failed cardiac stents followed by CABG, it would be worthwhile to get cardiology opinion when they are available tomorrow. Per previous admission records, patient was supposed to have follow-up echo and nuclear stress test however she never followed up to have this done. Reason For Visit: ACUTE ON CHRONIC COMBINED SYSTOLIC AND DIASTOLIC Physical Exam Vital Signs: Temp Pulse Resp BP Pulse Ox 98.3 F 54 L 16 94/48 L 93 11/10/19 11:35 11/10/19 11:35 11/10/19 11:35 11/10/19 11:35 11/10/19 11:35 Intake & Output 11/09/19 11/10/19 11/11/19 06:59 06:59 06:59 Intake Total 220 833 300 Balance 220 833 300 Weight 103.1 kg 44.9 kg General appearance: PRESENT: no acute distress, well-developed, well-nourished Head exam: PRESENT: atraumatic, normocephalic Eye exam: PRESENT: conjunctiva pink Mouth exam: PRESENT: moist Respiratory exam: PRESENT: crackles - Very scant to minimal crackles at base. ABSENT: rales, wheezes Cardiovascular exam: PRESENT: RRR. ABSENT: diastolic murmur, rubs, systolic murmur GI/Abdominal exam: PRESENT: normal bowel sounds, soft. ABSENT: distended, guarding, mass, organolmegaly, rebound, tenderness Musculoskeletal exam: PRESENT: ambulatory Neurological exam: PRESENT: alert, awake Psychiatric exam: PRESENT: appropriate affect, normal mood Skin exam: PRESENT: dry, intact, warm Results Laboratory Results: 11/09/19 04:47 11/10/19 05:06 11/10/19 11/10/19 05:06 05:06 Sodium 134.0 L Potassium 3.8 Chloride 94 L Carbon Dioxide 34 H Anion Gap 6 BUN 20 Creatinine 0.90 Est GFR ( Amer) > 60 Glucose 88 Calcium 8.3 L Magnesium 1.8 11/08/19 11/09/19 11/10/19 14:35 04:47 05:06 Troponin I < 0.012 NT-Pro-B Natriuret Pep 60861 H 55123 H 6150 H Impressions: Chest CT 11/08/19 00:00 IMPRESSION: Cardiomegaly with no aortic dissection or aneurysm. No pulmonary embolus. Pleural effusions without definite pneumonia. Chest X-Ray 11/08/19 13:46 IMPRESSION: Increased small right pleural effusion with compressive atelectasis/ consolidation at the right lung base. Assessment and Plan - Diagnosis (1) Acute on chronic respiratory failure with hypoxemia Is this a current diagnosis for this admission?: Yes (2) Acute systolic congestive heart failure Is this a current diagnosis for this admission?: Yes Plan: On admission chest exam did not reveal significant crackles that she may have severe interstitial edema Echocardiogram done but not read IV Lasix twice daily; diuresis continued Continue home cardiac medications Pleural effusion on the right seen on CT chest may be amenable to thoracentesis by IR CT PA showed: No PE, no pneumonia, positive for moderate right pleural effusion Per previous admission notes, patient was supposed to have repeat echocardiogram and nuclear stress test but she did not have this done; need to have this done here when breathing is at/near baseline Cardiology consulted (3) Coronary artery disease Qualifiers: Coronary Disease-Associated Artery/Lesion type: unspecified vessel or lesion type [place] vs. transplanted heart: [place] heart Associated angina: without angina Qualified Code(s): I25.10 - Atherosclerotic heart disease of [place] coronary artery without angina pectoris Is this a current diagnosis for this admission?: Yes (4) GERD (gastroesophageal reflux disease) Qualifiers: Esophagitis presence: without esophagitis Qualified Code(s): K21.9 - Gastro-esophageal reflux disease without esophagitis Is this a current diagnosis for this admission?: Yes (5) Hx of CABG Is this a current diagnosis for this admission?: Yes (6) Hyperlipidemia Is this a current diagnosis for this admission?: Yes (7) Hypothyroidism Is this a current diagnosis for this admission?: Yes (8) Moderate to severe pulmonary hypertension Is this a current diagnosis for this admission?: Yes (9) Advance care planning Is this a current diagnosis for this admission?: Yes - Time Time Spent with patient: 15-24 minutes Anticipated discharge: Home - Inpatient Certification Medical Necessity: Significant Comorbidiites Make Outpatient Treatment Too Risky, Need Close Monitoring Due to Risk of Patient Decompensation
--- NOTE | 2019-11-10 20:55 | XCELERA REPORT ---
[address] [address] Transthoracic Echocardiogram Report Name: TRUDY REILLY Age: 89 yrs Gender: Female : 1930 Patient Status: Inpatient Patient Location: [address] [place], [place] [address] Study Date: 11/08/2019 08:24 PM Height: 62 in Weight: 104 lb BSA: 1.4 m2 Procedure: A complete two-dimensional transthoracic echocardiogram was performed (2D, M-mode, spectral and color flow Doppler). The study was technically adequate with some images being suboptimal in quality. Reason For Study: acute CHF Ordering Physician: DELISA TOLLIVER Performed By: Chelsea Luz Interpretation Summary LV EF is 35% LV diastolic function could not be adequately assessed. The left ventricle is grossly normal size. There is normal left ventricular wall thickness. There is moderate global hypokinesis of the left ventricle. The right ventricle is borderline dilated. The left atrium is mildly dilated. The right atrium is normal in size There is a moderate amount of mitral regurgitation There is mild mitral stenosis There is a mild to moderate amount of aortic regurgitation There is probable mild aortic valve stenosis There is a mild amount of tricuspid regurgitation There is moderate pulmonary hypertension by echo Right ventricular systolic pressure is estimated to be elevated at 40-50mmHg. The aortic root is not well visualized but is probably normal size. The inferior vena cava appeared normal and decreased > 50% with respiration (RAP 5-10 mmHg) There is no pericardial effusion. MMode/2D Measurements & Calculations RVDd: 1.8 cm LVIDd: 4.8 cm FS: 14.7 % Ao root diam: 2.9 cm IVSd: 0.77 cm LVIDs: 4.1 cm EDV(Teich): Ao root area: 107.8 ml LVPWd: 0.92 cm 6.4 cm2 ESV(Teich): 74.2 mlLA dimension: 3.3 cm EF(Teich): 31.1 % LVLd ap4: 6.3 cm SV(MOD-sp4): EDV(MOD-sp4): 26.0 ml 73.0 ml LVLs ap4: 5.6 cm ESV(MOD-sp4): 47.0 ml EF(MOD-sp4): 35.6 % Doppler Measurements & Calculations MV E max stone: MV P1/2t max stone: Ao V2 max: AI max stone: 99.7 cm/sec 115.3 cm/sec 143.7 cm/sec 295.1 cm/sec MV A max stone: MV P1/2t: 69.0 msec Ao max PG: AI max P.4 cm/sec 8.3 mmHg 35.8 mmHg MVA(P1/2t): 3.2 cm2 MV E/A: 2.2 MV dec slope: AI dec slope: 489.1 cm/sec2 152.7 cm/sec2 MV dec time: AI P1/2t: 0.17 sec 566.1 msec LV V1 max PG: PA V2 max: PI end-d stone: TR max stone: 4.1 mmHg 77.0 cm/sec 155.4 cm/sec 312.4 cm/sec LV V1 max: PA max P.4 mmHg TR max P.7 cm/sec 39.0 mmHg AV P1/2t-pr_phl: MV P1/2t-pr_phl: 570.0 msec 69.0 msec Left Ventricle The left ventricle is grossly normal size. There is normal left ventricular wall thickness. LV EF is 35%. LV diastolic function could not be adequately assessed. There is moderate global hypokinesis of the left ventricle. Right Ventricle The right ventricle is borderline dilated. There is normal right ventricular wall thickness. The right ventricular systolic function is normal. Atria The right atrium is normal in size. The left atrium is mildly dilated. Interarterial septum not well visualized and not well dopplered. Cannot comment on ASD/PFO presence. Mitral Valve There is mild to moderate mitral leaflet calcification. There is mild mitral stenosis. There is a moderate amount of mitral regurgitation. Aortic Valve The aortic valve is mildly calcified. Probable mild . There is a mild to moderate amount of aortic regurgitation. Tricuspid Valve The tricuspid valve is not well visualized, but is grossly normal. There is no tricuspid stenosis. There is a mild amount of tricuspid regurgitation. There is moderate pulmonary hypertension by echo. Right ventricular systolic pressure is estimated to be elevated at 40-50mmHg. Pulmonic Valve The pulmonic valve is not well visualized. Great Vessels The aortic root is not well visualized but is probably normal size. The inferior vena cava appeared normal and decreased > 50% with respiration (RAP 5-10 mmHg). Effusions There is no pericardial effusion. : DELISA TOLLIVER Shyamal
[2019-11-10] MEDS: ATORVASTATIN CALCIUM 10 MG TABLET PO SCH (22:07)
[2019-11-11] MEDS: HEPARIN SOD (PORCINE) 5,000 UNIT/ML 1 ML VIAL SUBCUT SCH ×3 (06:17→22:29)
[2019-11-11] MEDS: LEVOTHYROXINE SODIUM 0.088 MG TABLET PO SCH (06:17)
[2019-11-11] MEDS: ASPIRIN 81 MG TABLET, CHEWABLE PO SCH (09:54)
[2019-11-11] MEDS: MAGNESIUM OXIDE 400 MG TABLET PO SCH (09:54)
[2019-11-11] MEDS: FUROSEMIDE INJ/PF 40 MG/4 ML SDV IV SCH ×2 (09:54→22:29)
[2019-11-11] MEDS: CARVEDILOL 12.5 MG TABLET PO SCH ×2 (09:54→21:06)
[2019-11-11] MEDS: SACUBITRIL/VALSARTAN 49 MG/51 MG TABLET PO SCH ×2 (09:54→22:24)
--- NOTE | 2019-11-11 15:10 | PDOC PROGRESS REPORT ---
Subjective Progress Note for:: 11/11/19 Subjective:: Patient states her breathing is much improved. However she complains of pain in her right foot which is been significant since yesterday night. She did not recall hitting her right foot anywhere and denies any fall. States difficulty bearing weight on her right foot since the pain ensued. Reason For Visit: ACUTE ON CHRONIC COMBINED SYSTOLIC AND DIASTOLIC Physical Exam Vital Signs: Temp Pulse Resp BP Pulse Ox 98.8 F 61 18 109/38 L 97 11/11/19 11:33 11/11/19 11:33 11/11/19 11:33 11/11/19 11:33 11/11/19 11:33 Intake & Output 11/10/19 11/11/19 11/12/19 06:59 06:59 06:59 Intake Total 833 800 630 Balance 833 800 630 Weight 44.9 kg 42.9 kg 42.9 kg General appearance: PRESENT: no acute distress, cooperative Neck exam: ABSENT: JVD Respiratory exam: PRESENT: crackles, decreased breath sounds - Bilateral lung base, symmetrical, unlabored. ABSENT: tachypnea, wheezes Cardiovascular exam: PRESENT: RRR, +S1, +S2. ABSENT: tachycardia GI/Abdominal exam: PRESENT: normal bowel sounds, soft. ABSENT: rebound, rigid, tenderness Extremities exam: PRESENT: other - Tenderness over multiple joints and right foot with very mild erythema but no significant swelling Neurological exam: PRESENT: alert, awake, oriented to person, oriented to place, oriented to time, oriented to situation Results Laboratory Results: 11/09/19 04:47 11/10/19 05:06 11/08/19 22:33 Clean Catch Midstream Urine Culture - Final NO GROWTH 2 DAYS 11/08/19 11/09/19 11/10/19 14:35 04:47 05:06 Troponin I < 0.012 NT-Pro-B Natriuret Pep 52030 H 44455 H 6150 H 11/11/19 05:03 Troponin I NT-Pro-B Natriuret Pep 4180 H Impressions: Chest CT 11/08/19 00:00 IMPRESSION: Cardiomegaly with no aortic dissection or aneurysm. No pulmonary embolus. Pleural effusions without definite pneumonia. Chest X-Ray 11/08/19 13:46 IMPRESSION: Increased small right pleural effusion with compressive atelectasis/ consolidation at the right lung base. Assessment and Plan - Diagnosis (1) Acute on chronic systolic heart failure Is this a current diagnosis for this admission?: Yes Plan: Continue diuresis with Lasix IV twice daily and plan to wean to p.o. tomorrow I's and O's documentation has been poor but patient's weight is showing decrease and BNP significantly decreased as compared to presentation Continue Entresto and Coreg Echocardiogram showing ejection fraction of 35% and RVSP of around 50 mmHg Monitor electrolyte panel (2) Acute on chronic respiratory failure with hypoxemia Is this a current diagnosis for this admission?: Yes Plan: Due to acute on chronic CHF and pulmonary hypertension with pleural effusions -Patient is only requiring 2 L nasal cannula at this moment with SPO2 in the high 90s. -We will attempt to wean off oxygen completely with further diuresis (3) Bilateral pleural effusion Is this a current diagnosis for this admission?: Yes Plan: More in the right than the left I suspect this is secondary to patient's congestive heart failure as I have no evidence of infectious pneumonia at the moment and CTA chest was negative for PE. Given that patient is almost completely off [place] oxygen, I will hold off on any thoracentesis at this time and just continue with diuresis to manage the pleural effusions. (4) Right foot pain Is this a current diagnosis for this admission?: Yes Plan: Check right foot x-ray with difficulty ambulating (5) History of coronary artery disease Is this a current diagnosis for this admission?: Yes Plan: History of CABG Continue aspirin and statin and beta-salma - Time Time Spent with patient: 15-24 minutes
--- NOTE | 2019-11-11 17:34 | RADIOLOGY REPORT (SQ) ---
EXAM DESCRIPTION: FOOT RIGHT COMPLETE COMPLETED DATE/TIME: 11/11/2019 5:00 pm REASON FOR STUDY: foot pain. difficulty bearing weight. I50.23 ACUTE ON CHRONIC SYSTOLIC (CONGESTIV E) HEART FAILURE I50.21 ACUTE SYSTOLIC (CONGESTIVE) HEART FAILURE COMPARISON: None. NUMBER OF VIEWS: Three views. TECHNIQUE: AP, lateral and oblique without weight bearing radiographic images acquired of the right foot. LIMITATIONS: None. FINDINGS: MINERALIZATION: Normal. BONES: No acute fracture or dislocation. No worrisome bone lesions. Plantar calcaneal spur. Mild bun ion deformity of the 1st toe. JOINTS: No erosions. No yesenia-articular osteopenia. No chondrocalcinosis. SOFT TISSUES: No swelling. No calcifications. OTHER: No other significant finding. IMPRESSION: MILD DEGENERATIVE CHANGES. NO ACUTE FINDINGS. TECHNICAL DOCUMENTATION: JOB ID: [id number]- All Rights Reserved Reading location - IP/workstation name: [email or web address]
--- NOTE | 2019-11-11 19:26 | PDOC CONSULTATION ---
Consultation Consult Date: 11/11/19 Provider Consulted: ARIADNE COOK Consult reason:: Congestive heart failure History of Present Illness Admission Date/PCP: 11/08/19 17:08 CHEVY GONSALVES MD Patient complains of: Dyspnea History of Present Illness: TRUDY REILLY is a 89 year old female With the following active problems 1. Coronary artery disease 2. 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 Systemic hypertension 4. Left ventricular dysfunction 5. Congestive heart failure-systolic 6. Dyslipidemia Elderly lady who has been admitted with acute decompensated congestive heart failure. Previous transthoracic echocardiogram from 2014 demonstrates left ventricular dysfunction with ejection fraction 35%. Since admission to hospital patient's symptoms have improved with diuretic therapy. At the time of my evaluation patient denies any chest pain or dyspnea. She is comfortably resting in bed. Non-smoker. Past Medical History Cardiac Medical History: Reports: Congestive Heart Failure, Coronary Artery Disease, Myocardial Infarction - 06/2000 , Hyperlipidema, Hypertension - meds since 1999 Denies: Atrial Fibrillation, Peripheral Vascular Disease, Pulmonary Embolism, Heart Murmur Pulmonary Medical History: Reports: Bronchitis, Pneumonia - viral 12 yrs ago Denies: Asthma, Chronic Obstructive Pulmonary Disease (COPD), Respiratory Failure, Sleep Apnea, Tuberculosis Neurological Medical History: Denies: Seizures Endocrine Medical History: Reports: Hypothyroidism Denies: Hyperthyroidism Renal/ Medical History: Denies: End Stage Renal Disease Malignancy Medical History: Denies: Breast Cancer, Cervical Cancer, Leukemia, Lung Cancer, Ovarian Cancer GI Medical History: Reports: Gastroesophageal Reflux Disease Denies: Crohn's Disease, Hiatal Hernia Musculoskeltal Medical History: Reports: Arthritis - all over Denies: Fibromyalgia Psychiatric Medical History: Denies: Bipolar Disorder, Dementia, Depression, Post Traumatic Stress Disorder Hematology: Denies: Anemia, Hemophilia, Sickle Cell Disease Infectious Medical History: Denies: HIV Past Surgical History Past Surgical History: Reports: Coronary Artery Bypass Graft, Hysterectomy Denies: Amputation, Colostomy, Pacemaker Social History Lives with: Family Smoking Status: Former Smoker Electronic Cigarette use?: No Frequency of Alcohol Use: None Hx Recreational Drug Use: No Drugs: None Hx Prescription Drug Abuse: No - Advance Directive Resuscitation Status: Do Not Resuscitate Family History Family History: Reviewed & Not Pertinent, CAD, Malignancy Parental Family History Reviewed: Yes - No familial illnesses chronical. Children Family History Reviewed: NA Sibling(s) Family History Reviewed.: NA Medication/Allergy Home Medications: Atorvastatin Calcium [Lipitor 10 mg Tablet] 10 mg PO QHS 08/15/19 Carvedilol [Coreg 25 mg Tablet] 25 mg PO Q12 08/15/19 Omeprazole 20 mg PO DAILY 08/15/19 Sacubitril/Valsartan [Entresto 49 mg/51 mg Tablet] 1 tab PO Q12 08/15/19 Furosemide [Lasix 20 mg Tablet] 10 mg PO QAM #10 tablet 08/18/19 Levothyroxine Sodium [Synthroid 0.088 mg Tablet] 0.088 mg PO Q6AM tablet 08/18/19 Magnesium Oxide [Mag-Ox 400 mg Tablet] 400 mg PO BID #30 tablet 08/18/19 Doxycycline Hyclate 100 mg PO BID #13 capsule 11/04/19 Allergies/Adverse Reactions: codeine [Codeine] Allergy (Intermediate, Verified 11/08/19 13:36) severe nausea Physical Exam Vital Signs: Temp Pulse Resp BP Pulse Ox 99.1 F 64 19 126/43 H 99 11/11/19 15:03 11/11/19 15:03 11/11/19 15:03 11/11/19 15:03 11/11/19 15:03 Intake & Output 11/10/19 11/11/19 11/12/19 06:59 06:59 06:59 Intake Total 589 799 5304 Balance 821 935 6270 Weight 44.9 kg 42.9 kg 42.9 kg General appearance: PRESENT: cooperative, thin Head exam: PRESENT: atraumatic, normocephalic Eye exam: PRESENT: EOMI Mouth exam: PRESENT: moist, neck supple Neck exam: PRESENT: JVD Respiratory exam: PRESENT: crackles, decreased breath sounds, symmetrical Cardiovascular exam: PRESENT: RRR, +S1, +S2 Pulses: PRESENT: normal radial pulses GI/Abdominal exam: PRESENT: soft Rectal exam: PRESENT: deferred Musculoskeletal exam: PRESENT: normal inspection Neurological exam: PRESENT: alert, oriented to person, oriented to place, oriented to time, oriented to situation Psychiatric exam: PRESENT: appropriate affect Skin exam: PRESENT: dry, intact, normal color Results Laboratory Results: 11/09/19 04:47 11/10/19 05:06 11/08/19 22:33 Clean Catch Midstream Urine Culture - Final NO GROWTH 2 DAYS 11/08/19 11/09/19 11/10/19 14:35 04:47 05:06 Troponin I < 0.012 NT-Pro-B Natriuret Pep 61557 H 96852 H 6150 H 11/11/19 05:03 Troponin I NT-Pro-B Natriuret Pep 4180 H EKG Comments: Twelve-lead EKG. Independently reviewed by me. Sinus rhythm with PVCs. Impressions: Chest CT 11/08/19 00:00 IMPRESSION: Cardiomegaly with no aortic dissection or aneurysm. No pulmonary embolus. Pleural effusions without definite pneumonia. Chest X-Ray 11/08/19 13:46 IMPRESSION: Increased small right pleural effusion with compressive atelectasis/ consolidation at the right lung base. Foot X-Ray 11/11/19 00:00 IMPRESSION: MILD DEGENERATIVE CHANGES. NO ACUTE FINDINGS. Assessment & Plan - Diagnosis (1) Acute on chronic systolic heart failure Is this a current diagnosis for this admission?: Yes Plan: Acute decompensated congestive heart failure-systolic Known left ventricular dysfunction with volume overload Patient has responded to intravenous diuretic therapy Would continue diuretic therapy Guideline directed therapy for left ventricular dysfunction as feasible (2) History of coronary artery disease Is this a current diagnosis for this admission?: Yes Plan: Presentation does not appear to be ischemic. Patient without chest pain History of coronary artery disease status post CABG. Medical therapy as feasible for coronary artery disease. No indication to pursue ischemia evaluation at this point. (3) Dilated cardiomyopathy Plan: Dilated cardiomyopathy with left ventricular dysfunction known. Given advanced age and patient preferences would recommend continued medical therapy Patient is quite ill nourished and given age and preferences is not a candidate for defibrillator therapy.
[2019-11-11] MEDS: ATORVASTATIN CALCIUM 10 MG TABLET PO SCH (22:29)
[2019-11-12] MEDS: HEPARIN SOD (PORCINE) 5,000 UNIT/ML 1 ML VIAL SUBCUT SCH (05:31)
[2019-11-12] MEDS: LEVOTHYROXINE SODIUM 0.088 MG TABLET PO SCH (05:31)
[2019-11-12] MEDS: CARVEDILOL 12.5 MG TABLET PO SCH (09:36)
[2019-11-12] MEDS: MAGNESIUM OXIDE 400 MG TABLET PO SCH (09:37)
[2019-11-12] MEDS: SACUBITRIL/VALSARTAN 49 MG/51 MG TABLET PO SCH (09:37)
[2019-11-12] MEDS: ASPIRIN 81 MG TABLET, CHEWABLE PO SCH (09:37)
[2019-11-12] MEDS ORDERED: FUROSEMIDE 40 MG TABLET PO SCH (10:00)
[2019-11-12 11:26] LABS: ANION GAP 8 (5-19); BLOOD UREA NITROGEN 30 mg/dL (7-20); CALCIUM 8.2 mg/dL (8.4-10.2); CARBON DIOXIDE 31 mmol/L (22-30); CHLORIDE 93 mmol/L (98-107); GLUCOSE 147 mg/dL (75-110); POTASSIUM 3.3 mmol/L (3.6-5.0)
--- NOTE | 2019-11-12 12:18 | PDOC DISCHARGE SUMMARY ---
Impression - Admit/DC Date/PCP Admission Date/Primary Care Provider: 11/08/19 17:08 CHEVY GONSALVES MD Discharge Date: 11/12/19 - Discharge Diagnosis (1) Acute on chronic systolic heart failure Is this a current diagnosis for this admission?: Yes (2) Acute on chronic respiratory failure with hypoxemia Is this a current diagnosis for this admission?: Yes (3) Bilateral pleural effusion Is this a current diagnosis for this admission?: Yes (4) Right foot pain Is this a current diagnosis for this admission?: Yes (5) History of coronary artery disease Is this a current diagnosis for this admission?: Yes - Assessment Summary: Patient was admitted and treated for shortness of breath. BNP was significantly elevated at around 14,900 on admission. Chest CTA showed no PE but did show pleural effusion without any pneumonia. Patient was started on treatment for suspected this compensation of acute on chronic heart failure. Entresto was resumed. Coreg dose was de-escalated to 6.25 mg every 12 hours due to bradycardia. Patient was diuresed with IV Lasix twice a day and achieved adequate diuresis. Patient lost significant fluid weight and was able to be weaned off oxygen which she was requiring upon admission for acute hypoxic respiratory failure. Patient has BNP after significantly being diuresed dropped to around 4000. Patient has been ambulating without difficulty and her shortness of breath has improved to almost complete resolution. Patient is being discharged on Lasix dose of 20 mg on Monday to and 40 mg on Monday to Monday. She has been instructed to follow-up with her primary log tumbler which she will be following up with. Of notes echocardiogram was done which showed an EF of 35%. Patient was evaluated by cardiology who deemed the patient should be continued on medical management and there was no indication for ICD or ischemic testing. Patient did complain of some right foot pain for which XRay of right foot revealed mild arthritis and OTC tylenol is recommended. Patient stable for discharge home at this time. - Additional Information Resuscitation Status: Do Not Resuscitate Discharge Diet: Cardiac Discharge Activity: Activity As Tolerated, Balance Activity w/Rest, Weigh Daily Referrals: CHEVY GONSALVES MD [Primary Care Provider] - (Please follow-up within 7 days of discharge.) Prescriptions: Carvedilol [Coreg 6.25 mg Tablet] 6.25 mg PO Q12 #60 tablet Furosemide [Lasix 20 mg Tablet] 20 mg PO QAM #60 tablet Home Medications: Atorvastatin Calcium [Lipitor 10 mg Tablet] 10 mg PO QHS 08/15/19 Omeprazole 20 mg PO DAILY 08/15/19 Sacubitril/Valsartan [Entresto 49 mg/51 mg Tablet] 1 tab PO Q12 08/15/19 Levothyroxine Sodium [Synthroid 0.088 mg Tablet] 0.088 mg PO Q6AM tablet 08/18/19 Magnesium Oxide [Mag-Ox 400 mg Tablet] 400 mg PO BID #30 tablet 08/18/19 Carvedilol [Coreg 6.25 mg Tablet] 6.25 mg PO Q12 #60 tablet 11/12/19 Furosemide [Lasix 20 mg Tablet] 20 mg PO QAM #60 tablet 11/12/19 History of Present Illiness History of Present Illness: TRUDY REILLY is a 89 year old female with past medical history of combined systolic diastolic heart failure exacerbation, acute hypoxemic respiratory failure, chills/rigors, BLE edema. For the past 3 weeks [employer] patient has been having progressive shortness of breath, generalized fatigue and weakness, and chills/Reiger's. 2 weeks [employer] her PCP gave her an antibiotic course which had no effect per patient. 1 week later patient was given a larger dose of her home Lasix and this was not effective in helping her breathing problems either. On day of admission, patient was notably dyspneic with PaO2 down to 70s. Blood pressure mildly elevated, not tachycardic, negative troponin, BNP up to 13,000. Given IV Lasix in the ED with some mild improvement but still extremely dyspneic whenever she removes supplemental oxygen. Patient did develop community- acquired pneumonia in July and was seen in the hospital for this per patient and daughter. Admitted for further evaluation work-up. Physical Exam Vital Signs: Temp Pulse Resp BP Pulse Ox 98.3 F 55 L 16 90/40 L 92 11/12/19 11:06 11/12/19 11:06 11/12/19 11:06 11/12/19 11:06 11/12/19 11:06 Intake & Output 11/11/19 11/12/19 11/13/19 06:59 06:59 06:59 Intake Total 800 1690 Balance 800 1690 Weight 42.9 kg 42.5 kg General appearance: PRESENT: no acute distress, cooperative Neck exam: ABSENT: JVD Respiratory exam: PRESENT: clear to auscultation rommel Cardiovascular exam: PRESENT: +S1, +S2 GI/Abdominal exam: PRESENT: normal bowel sounds, soft. ABSENT: tenderness Neurological exam: PRESENT: alert, awake Results Laboratory Results: WBC 3.8 10^3/uL (4.0-10.5) L 11/09/19 04:47 RBC 4.02 10^6/uL (3.72-5.28) 11/09/19 04:47 Hgb 12.3 g/dL (12.0-15.5) 11/09/19 04:47 Hct 36.2 % (36.0-47.0) 11/09/19 04:47 MCV 90 fl (80-97) 11/09/19 04:47 MCH 30.6 pg (27.0-33.4) 11/09/19 04:47 MCHC 34.0 g/dL (32.0-36.0) 11/09/19 04:47 RDW 14.5 % (11.5-14.0) H 11/09/19 04:47 Plt Count 168 10^3/uL (150-450) 11/09/19 04:47 Lymph % (Auto) 38.9 % (13-45) 11/09/19 04:47 [place] % (Auto) 9.6 % (3-13) 11/09/19 04:47 Eos % (Auto) 2.2 % (0-6) 11/09/19 04:47 Baso % (Auto) 1.3 % (0-2) 11/09/19 04:47 Absolute Neuts (auto) 1.8 10^3/uL (1.7-8.2) 11/09/19 04:47 Absolute Lymphs (auto) 1.5 10^3/uL (0.5-4.7) 11/09/19 04:47 Absolute Monos (auto) 0.4 10^3/uL (0.1-1.4) 11/09/19 04:47 Absolute Eos (auto) 0.1 10^3/uL (0.0-0.6) 11/09/19 04:47 Absolute Basos (auto) 0.0 10^3/uL (0.0-0.2) 11/09/19 04:47 Seg Neutrophils % 48.0 % (42-78) 11/09/19 04:47 Carbonic Acid 0.99 mmol/L (1.05-1.35) L 11/08/19 16:24 HCO3/H2CO3 Ratio 24:1 11/08/19 16:24 ABG pH 7.48 (7.35-7.45) H 11/08/19 16:24 ABG pCO2 32.9 mmHg (35-45) L 11/08/19 16:24 ABG pO2 73.7 mmHg (80-100) L 11/08/19 16:24 ABG HCO3 23.8 mmol/L (20-24) 11/08/19 16:24 ABG Total CO2 24.8 mmol/L (21-25) 11/08/19 16:24 ABG O2 Saturation 95.8 % (94-98) 11/08/19 16:24 ABG Base Excess 0.8 mmol/L 11/08/19 16:24 FiO2 21% 11/08/19 16:24 Sodium 132.1 mmol/L (137-145) L 11/12/19 10:32 Potassium 3.3 mmol/L (3.6-5.0) L 11/12/19 10:32 Chloride 93 mmol/L (98-107) L 11/12/19 10:32 Carbon Dioxide 31 mmol/L (22-30) H 11/12/19 10:32 Anion Gap 8 (5-19) 11/12/19 10:32 BUN 30 mg/dL (7-20) H 11/12/19 10:32 Creatinine 0.99 mg/dL (0.52-1.25) 11/12/19 10:32 Est GFR ( Amer) > 60 (>60) 11/12/19 10:32 Est GFR (MDRD) Non-Af 53 (>60) L 11/12/19 10:32 Glucose 147 mg/dL (75-110) H 11/12/19 10:32 Calcium 8.2 mg/dL (8.4-10.2) L 11/12/19 10:32 Magnesium 1.8 mg/dL (1.6-2.3) 11/12/19 10:32 Total Bilirubin 0.9 mg/dL (0.2-1.3) 11/08/19 14:35 Direct Bilirubin 0.6 mg/dL (0.0-0.4) H 11/08/19 14:35 Neonat Total Bilirubin Not Reportable 11/08/19 14:35 Neonat Direct Bilirubin Not Reportable 11/08/19 14:35 Neonat Indirect Bili Not Reportable 11/08/19 14:35 AST 88 U/L (14-36) H 11/08/19 14:35 ALT 71 U/L (<35) 11/08/19 14:35 Alkaline Phosphatase 170 U/L (38-126) H 11/08/19 14:35 Troponin I < 0.012 ng/mL 11/08/19 14:35 NT-Pro-B Natriuret Pep 4180 pg/mL (<450) H 11/11/19 05:03 Total Protein 6.7 g/dL (6.3-8.2) 11/08/19 14:35 Albumin 3.8 g/dL (3.5-5.0) 11/08/19 14:35 TSH 1.16 uIU/mL (0.47-4.68) 11/09/19 04:47 Urine Color YELLOW 11/08/19 17:15 Urine Appearance SLIGHTLY-CLOUDY 11/08/19 17:15 Urine pH 5.0 (5.0-9.0) 11/08/19 17:15 Ur Specific [place] 1.015 11/08/19 17:15 Urine Protein 30 mg/dL (NEGATIVE) H 11/08/19 17:15 Urine Glucose (UA) NEGATIVE mg/dL (NEGATIVE) 11/08/19 17:15 Urine Ketones NEGATIVE mg/dL (NEGATIVE) 11/08/19 17:15 Urine Blood SMALL (NEGATIVE) H 11/08/19 17:15 Urine Nitrite (Reflex) NEGATIVE (NEGATIVE) 11/08/19 17:15 Urine Bilirubin NEGATIVE (NEGATIVE) 11/08/19 17:15 Urine Urobilinogen NEGATIVE mg/dL (<2.0) 11/08/19 17:15 Leukocyte Esterase Rfl TRACE (NEGATIVE) H 11/08/19 17:15 Urine RBC (Auto) 6 /HPF 11/08/19 17:15 U Hyaline Cast (Auto) 8 /LPF 11/08/19 17:15 Urine Bacteria (Auto) TRACE /HPF 11/08/19 17:15 Urine WBC (Reflex) 3 /HPF 11/08/19 17:15 Squamous Epi Cells Auto 9 /HPF 11/08/19 17:15 U Non-Squamous Epis Auto 2 /HPF 11/08/19 17:15 Urine Mucus (Auto) RARE /LPF 11/08/19 17:15 Urine Ascorbic Acid NEGATIVE (NEGATIVE) 11/08/19 17:15 11/08/19 11/09/19 11/10/19 14:35 04:47 05:06 Troponin I < 0.012 NT-Pro-B Natriuret Pep 66114 H 62001 H 6150 H 11/11/19 05:03 Troponin I NT-Pro-B Natriuret Pep 4180 H Impressions: Chest CT 11/08/19 00:00 IMPRESSION: Cardiomegaly with no aortic dissection or aneurysm. No pulmonary embolus. Pleural effusions without definite pneumonia. Chest X-Ray 11/08/19 13:46 IMPRESSION: Increased small right pleural effusion with compressive atelectasis/ consolidation at the right lung base. Foot X-Ray 11/11/19 00:00 IMPRESSION: MILD DEGENERATIVE CHANGES. NO ACUTE FINDINGS. Stroke Is this a Stroke Patient?: No Acute Heart Failure - Is this a Heart Failure Patient?: Yes Documentation of LVEF assessment?: Yes LVEF < 40%?: Yes-if yes answer questions a through e a) Discharged on ACEI?: N/A Discharged on ARNI b) Discharges on ARB?: N/A-Discharged on ARNI c) Discharged on ARNI?: Yes d) Discharged on evidence-based Beta salma(carvedilol, sustained release metoprolol succinate, or bisoprolol)?: Yes e) For LVEF <35%, discharged on Aldosterone antagonist?: N/A (LVEF > or = 35%) 3. Anticoagulant therapy for permanect/persistent/paraoxysmal Afib or Aflutter: N/A Follow-up Appointment scheduled within 7 days?: Yes - Patientis making an appointment with her primary log tumbler within 7days.
[2019-11-12 12:30] VITALS: BP 92/39
[2019-11-12] MEDS ORDERED: POTASSIUM CHLORIDE 10 MEQ TABLET.ER PO ONE (12:30)
[2019-11-12] MEDS ORDERED: CARVEDILOL 12.5 MG TABLET PO SCH (22:00)
[2019-11-12] MEDS ORDERED: CARVEDILOL 6.25 MG TABLET PO SCH (22:00)
--- NOTE | 2019-11-13 09:03 | PDOC PROGRESS REPORT ---
Subjective Progress Note for:: 11/12/19 Reason For Visit: ACUTE ON CHRONIC COMBINED SYSTOLIC AND DIASTOLIC Physical Exam Vital Signs: Temp Pulse Resp BP Pulse Ox 98.3 F 55 L 16 92/39 L 92 11/12/19 12:28 11/12/19 12:28 11/12/19 12:28 11/12/19 12:28 11/12/19 12:28 Intake & Output 11/12/19 11/13/19 11/14/19 06:59 06:59 06:59 Intake Total 1690 625 Balance 1690 625 Weight 42.5 kg General appearance: PRESENT: no acute distress, thin Head exam: PRESENT: atraumatic, normocephalic Eye exam: PRESENT: conjunctiva pink, EOMI Respiratory exam: PRESENT: crackles, symmetrical, unlabored Cardiovascular exam: PRESENT: RRR, +S1, +S2 Pulses: PRESENT: normal radial pulses GI/Abdominal exam: PRESENT: soft Rectal exam: PRESENT: deferred Musculoskeletal exam: PRESENT: normal inspection Neurological exam: PRESENT: alert, awake, oriented to person, oriented to place, oriented to time, oriented to situation Psychiatric exam: PRESENT: appropriate affect Skin exam: PRESENT: intact, normal color Results Laboratory Results: 11/09/19 04:47 11/12/19 10:32 11/12/19 10:32 Sodium 132.1 L Potassium 3.3 L Chloride 93 L Carbon Dioxide 31 H Anion Gap 8 BUN 30 H Creatinine 0.99 Est GFR ( Amer) > 60 Glucose 147 H Calcium 8.2 L Magnesium 1.8 11/08/19 11/09/19 11/10/19 14:35 04:47 05:06 Troponin I < 0.012 NT-Pro-B Natriuret Pep 96618 H 09026 H 6150 H 11/11/19 05:03 Troponin I NT-Pro-B Natriuret Pep 4180 H Impressions: Chest CT 11/08/19 00:00 IMPRESSION: Cardiomegaly with no aortic dissection or aneurysm. No pulmonary embolus. Pleural effusions without definite pneumonia. Chest X-Ray 11/08/19 13:46 IMPRESSION: Increased small right pleural effusion with compressive atelectasis/ consolidation at the right lung base. Foot X-Ray 11/11/19 00:00 IMPRESSION: MILD DEGENERATIVE CHANGES. NO ACUTE FINDINGS. Assessment & Plan - Diagnosis (1) Acute on chronic systolic heart failure Is this a current diagnosis for this admission?: Yes Plan: Continue guideline directed therapy for congestive heart failure. Longstanding LV dysfunction Prefer conservative therapy given advanced age and frailty. (2) History of coronary artery disease Is this a current diagnosis for this admission?: Yes Plan: Status post CABG No ischemic symptoms. Continue medical therapy for coronary artery disease as feasible. (3) Dilated cardiomyopathy Plan: Supportive care Continue medicines for dilated cardiomyopathy and congestive heart failure Not a candidate for ICD given advanced age frailty and personal wishes
== END 2019-11-12 13:16 | disposition home or self-care (01) | DRG 291 ==
LOC: ER 13:29 → OBSVTOIN 17:08 → EH 17:08 → 4W 18:54
PROVIDERS: ADMIT Internal Medicine; ATTEND Internal Medicine
DX: I11.0 Hypertensive heart disease with heart failure (principal); J96.21 Acute and chronic respiratory failure with hypoxia; I50.23 Acute on chronic systolic (congestive) heart failure; J44.9 Chronic obstructive pulmonary disease, unspecified; I27.20 Pulmonary hypertension, unspecified; I42.0 Dilated cardiomyopathy; I25.10 Atherosclerotic heart disease of native coronary artery without angina pectoris; E03.9 Hypothyroidism, unspecified; K21.9 Gastro-esophageal reflux disease without esophagitis; Z66 Do not resuscitate; M79.671 Pain in right foot; M19.90 Unspecified osteoarthritis, unspecified site; Z88.6 Allergy status to analgesic agent; Z87.891 Personal history of nicotine dependence; I25.2 Old myocardial infarction; Z95.1 Presence of aortocoronary bypass graft; Z79.82 Long term (current) use of aspirin; Z79.899 Other long term (current) drug therapy; Z79.890 Hormone replacement therapy
CPT/HCPCS: 36415; 36600; 71046; 71260; 80048; 80053; 81001; 82803; 83735; 83880; 84443; 84484; 85025; 87086; 93005; 93010; 93306; 96374; 99285; J1644; J1940; J3475

== ENCOUNTER → 2019-11-28 | Outpatient (CLI) | payer MEDICARE, OTHER ==
[2019-11-28 15:57] LABS: FREE T4 (FREE THYROXINE) 1.7 ng/dL (0.78-2.19)
[2019-11-28 16:11] LABS: THYROID STIMULATING HORMONE 0.42 uIU/mL (0.47-4.68)
== END ==
LOC: OD 14:34
PROVIDERS: ATTEND Internal Medicine
DX: E03.9 Hypothyroidism, unspecified (principal)
CPT/HCPCS: 36415; 84439; 84443